=== PATIENT | female | born 1985 | race Two or more races ===

== ENCOUNTER 2024-05-08 05:14 | Emergency (ER) | payer MEDICAID, OTHER ==
[~2024-05-08] VITALS: Ht 167.6 cm; Wt 83.6 kg
--- NOTE | 2024-05-08 07:07 | ED.PDOC ---
Psychiatric HPI Comments 39 y/o F, presents to the ED for CC of mental health. Patient states, that she has been experiencing weakness and fatigue after being given proxy black magic. Patient relays, on additionally symptoms of skin discoloration and dry patches to the neck and head. Patient comments on, "latter day is being practiced on me". Patient denies suicidal ideation, homicidal ideation, visual hallucinations, or auditory hallucinations. No other symptoms or modifying factors at this time. Chief Complaint: Mental Health Time Seen by MD: 07:00 Reviewed Notes: Nurses Notes, Medications, Allergies Information Source: Patient Mode of Arrival: Ambulatory Severity: Able to Care for Self Severity of Pain: Mild Severity of Mental Status: Mild Severity of Symptoms: Mild Timing: Months Duration: Since onset Prehospital treatment: None Presents with: Unclear Thinking Ingestion: None Circumstance: None Current substance abuse: None Stressors: None History of: None Quality: None Location: None Location of pain or injury: None Associated signs and symptoms: None Past Medical History PAST MEDICAL HISTORY: Denies Surgical History: Denies all surgeries GENERAL SUPERVISOR History: Denies all GENERAL SUPERVISOR Hx Family History Family History: Unknown Social History Smoker: Non-Smoker Alcohol: Denies ETOH Use Drugs: Denies Drug Use Lives In: Home Constitutional: reports: fatigue, weakness; denies: chills, diaphoresis, fever, malaise, sweats, others EENTM: denies: blurred vision, double vision, ear bleeding, ear discharge, ear drainage, ear pain, ear ringing, eye pain, eye redness, hearing loss, mouth pain, mouth swelling, nasal discharge, nose bleeding, nose congestion, nose pain, photophobia, tearing, throat pain, throat swelling, voice changes, others Respiratory: denies: cough, hemoptysis, orthopnea, SOB at rest, shortness of breath, SOB with excertion, stridor, wheezing, others Cardiovascular: denies: chest pain, dizzy spells, diaphoresis, Dyspnea on exertion, edema, irregular heart beat, left arm pain, lightheadedness, palpitations, PND, syncope, others Gastrointestinal: denies: abdomen distended, abdominal pain, blood streaked bowels, constipated, diarrhea, dysphagia, difficulty swallowing, hematemesis, melena, nausea, poor appetite, poor fluid intake, rectal bleeding, rectal pain, vomiting, others Genitourinary: denies: abnormal vagina bleeding, burning, dyspareunia, dysuria, flank pain, frequency, hematuria, incontinence, pain, , vagina discharge, urgency, others Neurological: denies: dizziness, fainting, headache, left sided numbness, left sided weakness, numbness, paresthesia, pre-existing deficit, right sided numbness, right sided weakness, seizure, speech problems, tingling, tremors, weakness, others Musculoskeletal: denies: back pain, gout, joint pain, joint swelling, muscle pain, muscle stiffness, neck pain, others Integumetry: denies: bruises, change in color, change in hair/nails, dryness, laceration, lesions, lumps, rash, wounds, others Allergic/Immunocompromised: denies: Difficulty Healing, Frequent Infections, Hives, Itching, others Hematologic/Lymphatic: denies: anemia, blood clots, easy bleeding, easy bruising, swollen glands, others Endocrine: denies: excessive hunger, excessive sweating, excessive thirst, excessive urination, flushing, intolerance to cold, intolerance to heat, unexplained weight gain, unexplained weight loss, others All Other Systems: Reviewed and Negative Physical Exam General Appearance: Mild Distress HEENT: Normal ENT Inspection, Pharynx Normal, TMs Normal Neck: Full Range of Motion, Non-Tender, Normal, Normal Inspection Respiratory: Chest Non-Tender, Lungs Clear, No Accessory Muscle Use, No Respiratory Distress, Normal Breath Sounds Cardiovascular: No Edema, No JVD, No Murmur, No Gallop, Normal Peripheral Pulses, Regular Rate/Rhythm Breast Exam: Deferred Gastrointestinal: No Organomegaly, Non Tender, No Pulsatile Mass, Normal Bowel Sounds, Soft Genitalia: Deferred Pelvic: Deferred Rectal: Deferred Extremities: No calf tenderness, Normal capillary refill, Normal inspection, Normal range of motion, Non-tender, No pedal edema Musculoskeletal : Apperance: Normal Neurologic: Alert, 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 Was a procedure done?: No Psych Differential Dx Psych. Differential Dx: Anxiety, Schizoprenia, Sleepless OD Differential Dx: Alcohol Abuse, Depression, Hallucinations X-Ray, Labs, Meds, VS Vital Signs Date Time Temp Pulse Resp B/P (MAP) Pulse Ox O2 Delivery O2 Flow Rate FiO2 05/08/24 07:33 98.4 82 16 120/68 (85) 99 98.4 05/08/24 07:33 87 16 99 Room Air* 0 21 05/08/24 05:25 97.5 82 12 144/87 (106) 97 Patient alert. Complaining of generalized symptoms. Denies suicidal or homicidal ideation. Vitals stable. Answering all questions. Possible anxiety. Was given prescription of Ativan. Abdomen is soft nontender. No chest pain. No leg swelling. Ambulating without difficulty. Explained to the patient. Was told to follow up with her primary care physician. Was told to come back if there is any problem. Time of 1ST Reevaluation: 07:30 Reevaluation 1ST: Improved Patient Education/Counseling: Diagnosis, Treatment Family Education/Counseling: No Family Present Departure 1 Departure Time of Disposition: 08:12 Impression: Primary Impression: Anxiety Disposition: 01 HOME / SELF CARE / HOMELESS Condition: Good e-Prescriptions Lorazepam (ATIVAN TABLET) 0.5 Mg Tb 1 TAB PO DAILY for 5 Days, #5 TAB Prov: TRACI CLAY MD 05/08/24 Discharged With: Self Critical Care Note Critical Care Time?: No Stability Stability form required: No Heart Score Heart Score: Heart Score Response (Comments) Value History N/A 0 EKG N/A 0 Age N/A 0 Risk Factors N/A 0 Troponin N/A 0 Total 0 I personally scribed for TRACI CLAY MD ([email or web address]) on 05/08/24 at 07:07. Electronically submitted by Jemma Beck ([email or web address]). TRACI CLAY MD May 08, 2024 07:07
[2024-05-08 07:33] VITALS: BP 120/68; PULSE 87; RESP 16; TEMP 98.4; O2SAT 99
[2024-05-08] MEDS ORDERED: LORA-1121 PO (08:13)
[2024-05-08] MEDS ORDERED: LORazepam 0.5 MG TAB PO ONE (08:15)
== END 2024-05-08 09:34 | disposition home or self-care (01) ==
LOC: ER 05:14
DX: F41.9 Anxiety disorder, unspecified (principal)

== ENCOUNTER 2024-05-09 02:31 | Emergency (ER) | payer MEDICAID ==
[~2024-05-09] VITALS: Ht 167.6 cm; Wt 82.3 kg
[~2024-05-09 02:31] MED LIST: LORA-1121 PO
[2024-05-09 02:55] VITALS: BP 132/88; PULSE 89; RESP 17; O2SAT 100
== END 2024-05-09 05:04 | disposition left against medical advice (07) ==
LOC: ER 02:31
DX: F41.9 Anxiety disorder, unspecified (principal); Z53.21 Procedure and treatment not carried out due to patient leaving prior to being seen by health care provider

== ENCOUNTER 2024-05-16 22:41 | Emergency (ER) | payer MEDICAID ==
[~2024-05-16] VITALS: Ht 167.6 cm; Wt 81.7 kg
[2024-05-16 23:16] VITALS: BP 136/81; PULSE 105; RESP 18; O2SAT 100
--- NOTE | 2024-05-17 01:12 | ED.PDOC ---
History of Present Illness HPI Comments 39 year old female presents to the ED with multiple minor complaints, onset 2 months ago. Patient states she began noticing skin discoloration as well as pain behind ears, hair loss for the past few months. Patient states she believes she may have PTSD and is requesting a mental health referral. Patient denies any suicidal or homicidal ideation or auditory/visual hallucinations. Patient admits to meth use yesterday. Denies any PMHx. Chief Complaint: Mental Health Time Seen by MD: 00:43 Reviewed Notes: Medications, Allergies Allergies: Coded Allergies: Aspirin (Verified Allergy, Unknown, 05/08/24) Penicillins (Verified Allergy, Unknown, 05/08/24) Home Meds Active Scripts Lorazepam (ATIVAN TABLET) 0.5 Mg Tb, 1 TAB PO DAILY for 5 Days, #5 TAB Prov:TRACI CLAY MD 05/08/24 Information Source: Patient Mode of Arrival: Ambulatory Severity: Moderate Timing: Months Duration: Since onset Prehospital treatment: None Past Medical History PAST MEDICAL HISTORY: Denies Surgical History: Denies all surgeries STRUCTURAL ENGINEERING DRAFTING OFFICER History: Denies all STRUCTURAL ENGINEERING DRAFTING OFFICER Hx Family History Family History: Unknown Social History Smoker: Non-Smoker Alcohol: Denies ETOH Use Drugs: Methamphetamine Lives In: Home Constitutional: reports: others (hair loss); denies: chills, diaphoresis, fatigue, fever, malaise, sweats, weakness EENTM: reports: ear pain (behind ear); denies: blurred vision, double vision, ear bleeding, ear discharge, ear drainage, ear ringing, eye pain, eye redness, hearing loss, mouth pain, mouth swelling, nasal discharge, nose bleeding, nose congestion, nose pain, photophobia, tearing, throat pain, throat swelling, voice changes, others Respiratory: denies: cough, hemoptysis, orthopnea, SOB at rest, shortness of breath, SOB with excertion, stridor, wheezing, others Cardiovascular: denies: chest pain, dizzy spells, diaphoresis, Dyspnea on exertion, edema, irregular heart beat, left arm pain, lightheadedness, palpitations, PND, syncope, others Gastrointestinal: denies: abdomen distended, abdominal pain, blood streaked bowels, constipated, diarrhea, dysphagia, difficulty swallowing, hematemesis, melena, nausea, poor appetite, poor fluid intake, rectal bleeding, rectal pain, vomiting, others Genitourinary: denies: abnormal vagina bleeding, burning, dyspareunia, dysuria, flank pain, frequency, hematuria, incontinence, pain, , vagina discharge, urgency, others Neurological: denies: dizziness, fainting, headache, left sided numbness, left sided weakness, numbness, paresthesia, pre-existing deficit, right sided numbness, right sided weakness, seizure, speech problems, tingling, tremors, weakness, others Musculoskeletal: denies: back pain, gout, joint pain, joint swelling, muscle pain, muscle stiffness, neck pain, others Integumetry: reports: change in color (discoloration); denies: bruises, change in hair/nails, dryness, laceration, lesions, lumps, rash, wounds, others Allergic/Immunocompromised: denies: Difficulty Healing, Frequent Infections, Hives, Itching, others Hematologic/Lymphatic: denies: anemia, blood clots, easy bleeding, easy bruising, swollen glands, others Endocrine: denies: excessive hunger, excessive sweating, excessive thirst, excessive urination, flushing, intolerance to cold, intolerance to heat, unexplained weight gain, unexplained weight loss, others Psychiatric: denies: anxiety, bipolar disorder, depression, hopeless, panic disorder, schizophrenia, sleepless, suicidal, others All Other Systems: Reviewed and Negative Physical Exam General Appearance: No Apparent Distress HEENT: PERRL/EOMI, Other (minimal patchy alopecia. no scalp lesions noted.) Neck: Full Range of Motion, Non-Tender, Normal Inspection, Supple Respiratory: Lungs Clear, No Accessory Muscle Use, No Respiratory Distress, Normal Breath Sounds Cardiovascular: No Edema, No JVD, Regular Rate/Rhythm Breast Exam: Deferred Gastrointestinal: Non Tender, Soft Genitalia: Deferred Pelvic: Deferred Rectal: Deferred Extremities: Normal inspection, Normal range of motion, Non-tender, No pedal edema Neurologic: Alert (Oriented x4), Normal Affect, Normal Mood, Other (Ambulatory without difficulty. No gross focal deficit.) Cerebellar Function: NOT DONE Reflexes: NOT DONE Skin: Dry, Normal Color, Warm Lymphatic: NOT DONE Was a procedure done? Was a procedure done?: No Differential Dx Considerations may include: Meth abuse, psychosis, PTSD, depression, anxiety, among others X-Ray, Labs, Meds, VS Vital Signs Date Time Temp Pulse Resp B/P (MAP) Pulse Ox O2 Delivery O2 Flow Rate FiO2 05/16/24 23:16 97.8 105 18 136/81 (99) 100 X-Ray, Labs, Meds, VS Comment 39-year-old female with no significant past medical history presenting with multiple minor complaints including skin discoloration, pain behind her ears, and patchy hair loss. Patient denies suicidal or homicidal ideation, auditory or visual hallucinations. Vitals remarkable for heart rate 105 Exam remarkable for minimal patchy alopecia without scalp lesions Rhythm strip independently interpreted by me: Sinus tach, rate 105, no ectopy. CBC, metabolic panel, urine drug screen, urinalysis, hCG and alcohol levels were ordered to obtain medical clearance for psychiatric evaluation, however patient refused lab draw. I advised the patient that we would obtain tele psych evaluation if desired, however the patient declined this, stating that she would prefer to obtain referrals for outpatient mental health evaluation. She did request pain medicine for the pain behind her ears, so p.o. [place] was ordered. Patient is alert, oriented x4, not suicidal, homicidal or having auditory or hallucinations. She was offered social secretary consultation in the morning, however she declined. She appears capable of making informed decisions in capable of navigating the community independently. Time of 1ST Reevaluation: 01:13 Reevaluation 1ST: Unchanged Patient Education/Counseling: Diagnosis, Treatment, Prognosis Family Education/Counseling: No Family Present Departure 1 Departure Time of Disposition: 01:20 Impression: Primary Impression: Posterior auricular pain of both ears Additional Impression: Methamphetamine abuse Disposition: 01 HOME / SELF CARE / HOMELESS Condition: Stable Discharged With: Self Critical Care Note Critical Care Time?: No Stability Stability form required: No Heart Score Heart Score: Heart Score Response (Comments) Value History N/A 0 EKG N/A 0 Age N/A 0 Risk Factors N/A 0 Troponin N/A 0 Total 0 I personally scribed for JOAQUIN ROY MD ([email or web address]) on 05/17/24 at 01 :12. Electronically submitted by Marilyn Finley ([email or web address]). JOAQUIN ROY MD May 17, 2024 01:12
[2024-05-17] MEDS: HYDROcodone-ACET 5/325MG TAB PO ONE (01:26)
== END 2024-05-17 02:55 | disposition home or self-care (01) ==
LOC: ER 22:41
DX: H92.03 Otalgia, bilateral (principal); F15.10 Other stimulant abuse, uncomplicated; Z88.0 Allergy status to penicillin; Z88.6 Allergy status to analgesic agent

== ENCOUNTER 2024-05-28 03:42 | Emergency (ER) | payer MEDICAID ==
[~2024-05-28] VITALS: Ht 167.6 cm; Wt 75.4 kg
[2024-05-28 04:13] VITALS: BP 142/93; PULSE 100; RESP 18; O2SAT 100
--- NOTE | 2024-05-28 04:33 | ED.PDOC ---
History of Present Illness HPI Comments 39 y/o F presents for nausea, vomiting, and abnormal bleeding, tooisris. Patient is a poor historian and inquires on having her HgB levels checked due to recent onset of other aforementioned symptoms this past week. Denies any abdominal pain, diarrhea, urinary symptoms, fevers, or chills. Chief Complaint: Abnormal LAB's Time Seen by MD: 04:20 Reviewed Notes: Nurses Notes, Medications Allergies: Coded Allergies: Aspirin (Verified Allergy, Unknown, 05/08/24) Penicillins (Verified Allergy, Unknown, 05/08/24) Home Meds Active Scripts Lorazepam (ATIVAN TABLET) 0.5 Mg Tb, 1 TAB PO DAILY for 5 Days, #5 TAB Prov:TRACI CLAY MD 05/08/24 Information Source: Patient Mode of Arrival: Ambulatory Severity: Moderate Timing: Hours Duration: Since onset Prehospital treatment: None Past Medical History PAST MEDICAL HISTORY: Denies Surgical History: Denies all surgeries SHEET FOLDER History: Denies all SHEET FOLDER Hx Family History Family History: Unknown Social History Smoker: Non-Smoker Alcohol: Denies ETOH Use Drugs: Methamphetamine Lives In: Home All Other Systems: Reviewed and Negative (negative unless otherwise stated above or in HPI) Physical Exam General Appearance: No Apparent Distress, Normal HEENT: Normal ENT Inspection, Pharynx Normal, TMs Normal Neck: Full Range of Motion, Non-Tender, Normal, Normal Inspection Respiratory: Chest Non-Tender, Lungs Clear, No Accessory Muscle Use, No R espiratory Distress, Normal Breath Sounds Cardiovascular: No Edema, No JVD, No Murmur, No Gallop, Normal Peripheral Pulses, Regular Rate/Rhythm Breast Exam: Deferred Gastrointestinal: No Organomegaly, Non Tender, No Pulsatile Mass, Normal Bowel Sounds, Soft Genitalia: Deferred Pelvic: Deferred Rectal: Deferred Extremities: No calf tenderness, Normal capillary refill, Normal inspection, Normal range of motion, Non-tender, No pedal edema Musculoskeletal : Apperance: Normal Neurologic: Alert, 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 Was a procedure done?: No Differential Dx Considerations may include: anemia, dehydration, schizoaffective disorder X-Ray, Labs, Meds, VS Vital Signs Date Time Temp Pulse Resp B/P (MAP) Pulse Ox O2 Delivery O2 Flow Rate FiO2 05/28/24 04:13 98.2 100 18 142/93 (109) 100 Time of 1ST Reevaluation: 04:50 Reevaluation 1ST: Unchanged Time of 2ND Reevaluation: 05:15 Reevaluation 2ND: Improved Patient Education/Counseling: Diagnosis, Treatment Family Education/Counseling: No Family Present Departure 1 Departure Time of Disposition: 05:30 Impression: Primary Impression: Anxiety Disposition: 01 HOME / SELF CARE / HOMELESS Condition: Stable Discharged With: Self Critical Care Note Critical Care Time?: No Stability Stability form required: No Heart Score Heart Score: Heart Score Response (Comments) Value History N/A 0 EKG N/A 0 Age N/A 0 Risk Factors N/A 0 Troponin N/A 0 Total 0 I personally scribed for NIYAH BERMUDEZ MD ([email or web address]) on 05/28/24 at 04:33. Electronically submitted by Bobby Dillon ([email or web address]). NIYAH BERMUDEZ MD May 28, 2024 04:33
== END 2024-05-28 06:40 | disposition home or self-care (01) ==
LOC: ER 03:42
DX: F41.9 Anxiety disorder, unspecified (principal); R11.2 Nausea with vomiting, unspecified; Z79.899 Other long term (current) drug therapy; Z88.0 Allergy status to penicillin; Z79.82 Long term (current) use of aspirin

== ENCOUNTER 2024-06-02 05:17 | Emergency (ER) | payer MEDICAID | END 2024-06-02 05:27 | disposition left against medical advice (07) | LOC: ER 05:17 | DX: R53.83 Other fatigue (principal); R42 Dizziness and giddiness; Z53.21 Procedure and treatment not carried out due to patient leaving prior to being seen by health care provider ==

== ENCOUNTER 2024-06-19 06:55 | Emergency (ER) | payer MEDICAID ==
[~2024-06-19] VITALS: Ht 167.6 cm; Wt 80.0 kg
[2024-06-19 07:10] VITALS: BP 154/94; PULSE 96; RESP 16; TEMP 97.8; O2SAT 98
--- NOTE | 2024-06-19 07:11 | ED.PDOC ---
History of Present Illness HPI Comments 39 year old female JHON presents to the ED with chief complaint of generalized body pains. EMS reports patient was found to be in pain at [facility] when EMS was called. EMS relays that the patient is complaining of body pains, headaches, and skin discolorations that are because of a "witch doctor" practicing black magic on her. EMS states patient denies any drug use and is A/O x4. Patient requests spiritual healing. Patient denies any psych history, dizziness, N/V, chest pain, or SOB. Time Seen by MD: 07:08 Reviewed Notes: Nurses Notes, Student Services Representative Notes, Medications, Allergies Allergies: Coded Allergies: Aspirin (Verified Allergy, Unknown, 05/08/24) Penicillins (Verified Allergy, Unknown, 05/08/24) Home Meds Active Scripts Lorazepam (ATIVAN TABLET) 0.5 Mg Tb, 1 TAB PO DAILY for 5 Days, #5 TAB Prov:TRACI CLAY MD 05/08/24 Information Source: Patient, Emergency Med Personnel Mode of Arrival: EMS Severity: Mild Timing: Hours Duration: Since onset Prehospital treatment: None Past Medical History PAST MEDICAL HISTORY: Denies Surgical History: Denies all surgeries CANCER CENTER DIRECTOR History: Denies all CANCER CENTER DIRECTOR Hx Family History Family History: Unknown Social History Smoker: Non-Smoker Alcohol: Denies ETOH Use Drugs: Methamphetamine Lives In: Home Constitutional: reports: others (Body pains); denies: chills, diaphoresis, fatigue, fever, malaise, sweats, weakness EENTM: denies: blurred vision, double vision, ear bleeding, ear discharge, ear drainage, ear pain, ear ringing, eye pain, eye redness, hearing loss, mouth pain, mouth swelling, nasal discharge, nose bleeding, nose congestion, nose pa in, photophobia, tearing, throat pain, throat swelling, voice changes, others Respiratory: denies: cough, hemoptysis, orthopnea, SOB at rest, shortness of breath, SOB with excertion, stridor, wheezing, others Cardiovascular: denies: chest pain, dizzy spells, diaphoresis, Dyspnea on exertion, edema, irregular heart beat, left arm pain, lightheadedness, palpitations, PND, syncope, others Gastrointestinal: denies: abdomen distended, abdominal pain, blood streaked bowels, constipated, diarrhea, dysphagia, difficulty swallowing, hematemesis, melena, nausea, poor appetite, poor fluid intake, rectal bleeding, rectal pain, vomiting, others Genitourinary: denies: abnormal vagina bleeding, burning, dyspareunia, dysuria, flank pain, frequency, hematuria, incontinence, pain, , vagina discharge, urgency, others Neurological: reports: headache; denies: dizziness, fainting, left sided nu mbness, left sided weakness, numbness, paresthesia, pre-existing deficit, right sided numbness, right sided weakness, seizure, speech problems, tingling, tremors, weakness, others Musculoskeletal: denies: back pain, gout, joint pain, joint swelling, muscle pain, muscle stiffness, neck pain, others Integumetry: reports: others (Skin discoloration); denies: bruises, change in color, change in hair/nails, dryness, laceration, lesions, lumps, rash, wounds Allergic/Immunocompromised: denies: Difficulty Healing, Frequent Infections, Hives, Itching, others Hematologic/Lymphatic: denies: anemia, blood clots, easy bleeding, easy bruising, swollen glands, others Endocrine: denies: excessive hunger, excessive sweating, excessive thirst, excessive urination, flushing, intolerance to cold, intolerance to heat, unexplained weight gain, unexplained weight loss, others Psychiatric: denies: anxiety, bipolar disorder, depression, hopeless, panic disorder, schizophrenia, sleepless, suicidal, others All Other Systems: Reviewed and Negative Physical Exam General Appearance: Moderate Distress, Normal HEENT: Normal ENT Inspection, PERRL/EOMI Neck: Full Range of Motion, Non-Tender, Normal, Normal Inspection Respiratory: Chest Non-Tender, Lungs Clear, No Accessory Muscle Use, No Respiratory Distress, Normal Breath Sounds Cardiovascular: No Edema, No JVD, No Murmur, No Gallop, Normal Peripheral Pulses, Regular Rate/Rhythm Breast Exam: Deferred Gastrointestinal: No Organomegaly, Non Tender, No Pulsatile Mass, Normal Bowel Sounds, Soft Genitalia: Deferred Pelvic: Deferred Rectal: Deferred Extremities: No calf tenderness, Normal capillary refill, Normal inspection, Normal range of motion, Non-tender, No pedal edema Musculoskeletal : Apperance: Normal Neurologic: Alert, human resources designate II-XII nml as Tested, No Motor Deficits, Normal Affect, Normal Mood, No Sensory Deficits Cerebellar Function: Normal Reflexes: Normal Skin: Dry, Normal Color, Warm Peripheral Pulses: 3+ Radial (R), 3+ Radial (L) Lymphatic: No Adenopathy Was a procedure done? Was a procedure done?: No Differential Dx Considerations may include: Drug use X-Ray, Labs, Meds, VS Vital Signs Date Time Temp Pulse Resp B/P (MAP) Pulse Ox O2 Delivery O2 Flow Rate FiO2 06/19/24 07:10 97.8 96 16 154/94 (114) 98 97.8 Patient alert. Denies any symptoms. Vitals stable. Answering all questions. Insists on leaving. Counseled patient on effects of use of drugs pain Was told to take Benadryl. Left without telling anyone. Time of 1ST Reevaluation: 08:08 Reevaluation 1ST: Improved Patient Education/Counseling: Diagnosis, Treatment Family Education/Counseling: No Family Present Additional Information Previous visit documents reviewed: 06/02/24 for fatigue/dizziness The following tests were ordered, and results were reviewed by me: JOSÉ LUIS Additional Information was gathered from interviewing the following independent historians: EMS I reviewed and agreed with the following test results read by other providers: None I discussed treatment and results with medical personnel and: Patient Departure 1 Departure Time of Disposition: 18:28 Impression: Primary Impression: Methamphetamine abuse Additional Impression: Anxiety Disposition: 30 STILL A PATIENT Condition: Good Critical Care Note Critical Care Time?: No Stability Stability form required: No Heart Score Heart Score: Heart Score Response (Comments) Value History N/A 0 EKG N/A 0 Age N/A 0 Risk Factors N/A 0 Troponin N/A 0 Total 0 I personally scribed for TRACI CLAY MD ([email or web address]) on 06/19/24 at 07:11. Electronically submitted by Adryan Butts ([email or web address]). I personally scribed for TRACI CLYA MD ([email or web address]) on 06/19/24 at 07:30. Electronically submitted by Adryan Butts ([email or web address]). TRACI CLAY MD Jun 19, 2024 07:11
[2024-06-19] MEDS: diphenhdrAMINE HCL 25 MG CAP PO ONE (07:15)
== END 2024-06-19 08:54 | disposition left against medical advice (07) ==
LOC: ER 06:55 → EDBD 06:55 → ER 08:54
DX: F15.10 Other stimulant abuse, uncomplicated (principal); F41.9 Anxiety disorder, unspecified; Z79.899 Other long term (current) drug therapy; Z88.0 Allergy status to penicillin; Z88.6 Allergy status to analgesic agent

== ENCOUNTER 2024-06-21 22:25 | Emergency (ER) | payer MEDICAID ==
[~2024-06-21] VITALS: Ht 167.6 cm; Wt 81.6 kg
[2024-06-21 22:58] VITALS: BP 132/78; PULSE 101; RESP 16; TEMP 99; O2SAT 97
--- NOTE | 2024-06-21 23:33 | ED.PDOC ---
History of Present Illness HPI Comments This patient is a 39-year-old female who arrives to the ED today for evaluation of generalized weakness. Patient states she has a history of anemia and is concerned that she is anemic. Additionally, patient confirms illicit drug use including PCP as recently as today.. Patient was slightly tachycardic at [facility]. Chief Complaint: Abnormal LAB's Time Seen by MD: 22:36 Reviewed Notes: Nurses Notes Allergies: Coded Allergies: Aspirin (Verified Allergy, Unknown, 05/08/24) Penicillins (Verified Allergy, Unknown, 05/08/24) Home Meds Active Scripts Lorazepam (ATIVAN TABLET) 0.5 Mg Tb, 1 TAB PO DAILY for 5 Days, #5 TAB Prov:TRACI CLAY MD 05/08/24 Information Source: Patient Mode of Arrival: Ambulatory Severity: Mild Timing: Hours Duration: Since onset Prehospital treatment: None Past Medical History PAST MEDICAL HISTORY: Anemia, Denies Surgical History: Denies all surgeries APPRENTICE LINEMAN THIRD STEP History: Denies all 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 LINEMAN THIRD STEP Hx Family History Family History: Unknown Social History Smoker: Non-Smoker Alcohol: Denies ETOH Use Drugs: Methamphetamine Lives In: Home Constitutional: reports: fatigue, weakness; denies: chills, diaphoresis, fever, malaise, sweats, others EENTM: denies: blurred vision, double vision, ear bleeding, ear discharge, ear drainage, ear pain, ear ringing, eye pain, eye redness, hearing loss, mouth pain, mouth swelling, nasal discharge, nose bleeding, nose congestion, nose pain, photophobia, tearing, throat pain, throat swelling, voice changes, others Respiratory: denies: cough, hemoptysis, orthopnea, SOB at rest, shortness of breath, SOB with excertion, stridor, wheezing, others Cardiovascular: denies: chest pain, dizzy spells, diaphoresis, Dyspnea on exertion, edema, irregular heart beat, left arm pain, lightheadedness, palpitations, PND, syncope, others Gastrointestinal: denies: abdomen distended, abdominal pain, blood streaked bowels, constipated, diarrhea, dysphagia, difficulty swallowing, hematemesis, melena, nausea, poor appetite, poor fluid intake, rectal bleeding, rectal pain, vomiting, others Genitourinary: denies: abnormal vagina bleeding, burning, dyspareunia, dysuria, flank pain, frequency, hematuria, incontinence, pain, , vagina discharge, urgency, others Neurological: denies: dizziness, fainting, headache, left sided numbness, left sided weakness, numbness, paresthesia, pre-existing deficit, right sided numbness, right sided weakness, seizure, speech problems, tingling, tremors, weakness, others Musculoskeletal: denies: back pain, gout, joint pain, joint swelling, muscle pain, muscle stiffness, neck pain, others Integumetry: denies: bruises, change in color, change in hair/nails, dryness, laceration, lesions, lumps, rash, wounds, others Allergic/Immunocompromised: denies: Difficulty Healing, Frequent Infections, Hives, Itching, others Hematologic/Lymphatic: denies: anemia, blood clots, easy bleeding, easy bruising, swollen glands, others Endocrine: denies: excessive hunger, excessive sweating, excessive thirst, excessive urination, flushing, intolerance to cold, intolerance to heat, unexplained weight gain, unexplained weight loss, others Psychiatric: denies: anxiety, bipolar disorder, depression, hopeless, panic disorder, schizophrenia, sleepless, suicidal, others Physical Exam General Appearance: No Apparent Distress (Patient did not seem to be in distress at time of evaluation. Patient was aggressively eating potato chips and looked asymptomatic.), Normal HEENT: Normal ENT Inspection, Pharynx Normal, TMs Normal Neck: Full Range of Motion, Non-Tender, Normal, Normal Inspection Respiratory: Chest Non-Tender, Lungs Clear, No Accessory Muscle Use, No Respir atory Distress, Normal Breath Sounds Cardiovascular: No Edema, No JVD, No Murmur, No Gallop, Normal Peripheral Pulses, Regular Rate/Rhythm Breast Exam: Deferred Gastrointestinal: No Organomegaly, Non Tender, No Pulsatile Mass, Normal Bowel Sounds, Soft Genitalia: Deferred Pelvic: Deferred Rectal: Deferred Extremities: No calf tenderness, Normal capillary refill, Normal inspection, Normal range of motion, Non-tender, No pedal edema Neurologic: Alert, No Motor Deficits, No Sensory Deficits Cerebellar Function: NOT DONE Reflexes: NOT DONE Skin: Dry, Normal Color, Warm Lymphatic: No Adenopathy Was a procedure done? Was a procedure done?: No Differential Dx Considerations may include: Anemia, electrolyte abnormality, UTI, sepsis, illicit drug use X-Ray, Labs, Meds, VS Vital Signs Date Time Temp Pulse Resp B/P (MAP) Pulse Ox O2 Delivery O2 Flow Rate FiO2 06/21/24 22:58 99.0 101 16 132/78 (96) 97 99.0 X-Ray, Labs, Meds, VS Comment Phlebotomy attempted multiple times to ascertain blood for blood work, but patient refused to give blood today. Patient will be discharged and advised to follow up with the primary care provider.Advised patient to cease illicit drug use immediately and follow up with a support groups such as narcotics anonymous. Time of 1ST Reevaluation: 23:31 Reevaluation 1ST: Unchanged Consultation: PCP Patient Education/Counseling: Diagnosis, Treatment Family Education/Counseling: Diagnosis, Treatment Departure 1 Departure Time of Disposition: 23:32 Impression: Primary Impression: Weakness Disposition: 01 HOME / SELF CARE / HOMELESS Condition: Stable Additional Instructions: Advised patient follow up with the primary care provider for continued evaluation as needed. Discharged With: Self Critical Care Note Critical Care Time?: No Stability Stability form required: No Heart Score Heart Score: Heart Score Response (Comments) Value History N/A 0 EKG N/A 0 Age N/A 0 Risk Factors N/A 0 Troponin N/A 0 Total 0 CHANDLER MATTHEWS PAC Jun 21, 2024 23:33
== END 2024-06-22 00:33 | disposition home or self-care (01) ==
LOC: ER 22:25
DX: R53.1 Weakness (principal); F12.90 Cannabis use, unspecified, uncomplicated; Z88.0 Allergy status to penicillin; Z79.899 Other long term (current) drug therapy; Z88.6 Allergy status to analgesic agent

== ENCOUNTER 2024-07-03 02:48 | Emergency (ER) | payer MEDICAID ==
[~2024-07-03] VITALS: Ht 167.6 cm; Wt 87.9 kg
[2024-07-03 03:00] VITALS: BP 130/79; PULSE 105; RESP 14; TEMP 98.5; O2SAT 99
--- NOTE | 2024-07-03 03:10 | ED.PDOC ---
SOB-HPI HPI Comments PT PRESENTS TO ED W/CC OF FATIGUE AND SOB. PT A&OX4, VSS, RR EVEN AND UNLABORED SATTING 99% ON RA. PATIENT REPORTS CHRONIC HISTORY OF ANEMIA SHE NOTES ADMISSIONS IN THE PAST FOR BLOOD TRANSFUSIONS. SHE DENIES DIFFICULTY BREATHING, CHEST PAIN, DIZZINESS, NAUSEA VOMITING. Chief Complaint: Shortness of Breath Time Seen by MD: 02:55 Reviewed notes: Nurses Notes, Medications, Allergies Information Source: Patient Past Medical History PAST MEDICAL HISTORY: Anemia, Denies Surgical History: Denies all surgeries SHALLOT PACKER History: Denies all SHALLOT PACKER Hx Family History Family History: Unknown Social History Smoker: Non-Smoker Alcohol: Denies ETOH Use Drugs: Methamphetamine Lives In: Home Constitutional: denies: chills, diaphoresis, fatigue, fever, malaise, sweats, weakness, others EENTM: denies: blurred vision, double vision, ear bleeding, ear discharge, ear drainage, ear pain, ear ringing, eye pain, eye redness, hearing loss, mouth pain, mouth swelling, nasal discharge, nose bleeding, nose congestion, nose pain, photophobia, tearing, throat pain, throat swelling, voice changes, others Respiratory: reports: cough, shortness of breath; denies: hemoptysis, orthopnea, SOB at rest, SOB with excertion, stridor, wheezing, others Cardiovascular: denies: chest pain, dizzy spells, diaphoresis, Dyspnea on exertion, edema, irregular heart beat, left arm pain, lightheadedness, palpitations, PND, syncope, others Gastrointestinal: denies: abdomen distended, abdominal pain, blood streaked bowels, constipated, diarrhea, dysphagia, difficulty swallowing, hematemesis, melena, nausea, poor appetite, poor fluid intake, rectal bleeding, rectal pain, vomiting, others Genitourinary: denies: abnormal vagina bleeding, burning, dyspareunia, dysuria, flank pain, frequency, hematuria, incontinence, pain, , vagina discharge, urgency, others Neurological: denies: dizziness, fainting, headache, left sided numbness, left sided weakness, numbness, paresthesia, pre-existing deficit, right sided numbness, right sided weakness, seizure, speech problems, tingling, tremors, weakness, others Musculoskeletal: denies: back pain, gout, joint pain, joint swelling, muscle pain, muscle stiffness, neck pain, others Integumetry: denies: bruises, change in color, change in hair/nails, dryness, laceration, lesions, lumps, rash, wounds, others Allergic/Immunocompromised: denies: Difficulty Healing, Frequent Infections, Hives, Itching, others Hematologic/Lymphatic: denies: anemia, blood clots, easy bleeding, easy bruising, swollen glands, others Endocrine: denies: excessive hunger, excessive sweating, excessive thirst, excessive urination, flushing, intolerance to cold, intolerance to heat, unexplained weight gain, unexplained weight loss, others Psychiatric: denies: anxiety, bipolar disorder, depression, hopeless, panic disorder, schizophrenia, sleepless, suicidal, others Physical Exam General Appearance: No Apparent Distress, Normal HEENT: Normal ENT Inspection, Pharynx Normal, TMs Normal Neck: Full Range of Motion, Non-Tender Respiratory: Chest Non-Tender, Lungs Clear, No Accessory Muscle Use, No Respiratory Distress, Normal Breath Sounds Cardiovascular: No Edema, No JVD, No Murmur, No Gallop, Normal Peripheral Pulses, Regular Rate/Rhythm Breast Exam: Deferred Gastrointestinal: No Organomegaly, Non Tender, No Pulsatile Mass, Normal Bowel Sounds, Soft Genitalia: Deferred Pelvic: Deferred Rectal: Deferred Extremities: Normal capillary refill, Normal inspection, Normal range of motion, Non-tender, No pedal edema Musculoskeletal : Apperance: Normal Neurologic: Alert, chrome cleaner II-XII nml as 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 Was a procedure done?: No Differential Dx Differential Diagnosis: Asthma, Bronchitis, Pneumonia X-Ray, Labs, Meds, VS Vital Signs Date Time Temp Pulse Resp B/P (MAP) Pulse Ox O2 Delivery O2 Flow Rate FiO2 07/03/24 03:00 98.5 105 14 130/79 (96) 99 98.5 Lab Test 07/03/24 03:12 Range/Units White Blood Count 6.0 4.4-10.8 10^3/uL Red Blood Count 4.05 4.0-5.20 10^6/uL Hemoglobin 8.4 L 12.2-16.2 g/dL Hematocrit 27.5 L 36.0-46.0 % Mean Corpuscular Volume 67.9 L 80.0-100.0 fL Mean Corpuscular Hemoglobin 20.8 L 28.0-32.0 pg Mean Corpuscular Hemoglobin Concent 30.6 L 32.0-36.0 g/dL Red Cell Distribution Width 18.5 H 11.8-14.3 % Platelet Count 478 H 140-450 10^3/uL Mean Platelet Volume 7.0 6.9-10.8 fL Neutrophils (%) (Auto) 44.6 37.0-80.0 % Lymphocytes (%) (Auto) 37.2 10.0-50.0 % Monocytes (%) (Auto) 12.4 H 0.0-12.0 % Eosinophils (%) (Auto) 3.6 0.0-7.0 % Basophils (%) (Auto) 2.2 H 0.0-2.0 % Neutrophils # (Auto) 2.7 1.6-8.6 10 ^3/uL Lymphocytes # (Auto) 2.2 0.4-5.4 10 ^3/uL Monocytes # (Auto) 0.7 0-1.3 10 ^3/uL Eosinophils # (Auto) 0.2 0-0.8 10 ^3/uL Basophils # (Auto) 0.1 0-0.2 10 ^3/uL Nucleated Red Blood Cells 0.3 % Sodium Level 139 136-145 mmol/L Potassium Level 4.3 3.5-5.1 mmol/L Chloride Level 109 H 98-107 mmol/L Carbon Dioxide Level 22 20-31 mmol/L Anion Gap 8 5-15 Blood Urea Nitrogen 15 9-23 mg/dL Creatinine 0.76 0.550-1.02 mg/dL Glomerular Filtration Rate Calc 103 >90 mL/min BUN/Creatinine Ratio 19.7 10.0-20.0 Serum Glucose 102 74-106 mg/dL Calcium Level 9.2 8.7-10.4 mg/dL Magnesium Level 1.9 1.6-2.6 mg/dL Iron Level 23 L 50-170 ug/dL Total Iron Binding Capacity 364 250-425 ug/dL Percent Iron Saturation 6.3 L 15-50 % Total Bilirubin 0.3 0.2-1.0 mg/dL Aspartate Amino Transferase (AST) 36 13-40 U/L Alanine Aminotransferase (ALT) 40 7-40 U/L Alkaline Phosphatase 53 46-116 U/L Total Protein 7.0 5.7-8.2 g/dL Albumin 4.1 3.2-4.8 g/dL X-Ray, Labs, Meds, VS Comment IMAGING: CHEST X-RAY SHOWS MILD PULMONARY CONGESTION LABS: HEMOGLOBIN 8.4 HEMATOCRIT 27.5 PATIENT REPORTS SHORTNESS OF BREATH AND FATIGUE. HISTORY OF CHRONIC ANEMIA. PATIENT'S HEMOGLOBIN 8.4 AND HEMATOCRIT 27.5 NO HISTORY OF BASELINE H&H. WE WILL PLACE FOR HOSPITALIST FOR ADMISSION FOR SYMPTOMATIC ANEMIA, SHORTNESS OF BREATH, AND FATIGUE. Time of 1ST Reevaluation: 03:09 Reevaluation 1ST: Unchanged Patient Education/Counseling: Diagnosis, Treatment, Prognosis, Need For Follow Up Family Education/Counseling: No Family Present Departure 1 Departure Time of Disposition: 03:23 Impression: Primary Impression: Symptomatic anemia Additional Impressions: Fatigue Qualified Codes: R53.83 - Other fatigue Shortness of breath Disposition: 09 ADMITTED INPATIENT Condition: Stable Discharged With: Self Critical Care Note Critical Care Time?: No Stability Stability form required: No Heart Score Heart Score: Heart Score Response (Comments) Value History N/A 0 EKG N/A 0 Age <45 0 Risk Factors N/A 0 Troponin N/A 0 Total 0 GRECIA MEDINA Jul 03, 2024 03:10
[2024-07-03 03:30] LABS: Basophils # (auto) 0.1 10 ^3/uL (0-0.2); Monocytes # (auto) 0.7 10 ^3/uL (0-1.3)
[2024-07-03 03:32] LABS: Basophils % (auto) 2.2 % (0.0-2.0); Eosinophils # (auto) 0.2 10 ^3/uL (0-0.8); Eosinophils % (auto) 3.6 % (0.0-7.0); Hematocrit 27.5 % (36.0-46.0); Hemoglobin 8.4 g/dL (12.2-16.2); Lymphocytes # (auto) 2.2 10 ^3/uL (0.4-5.4); Lymphocytes % (auto) 37.2 % (10.0-50.0); Mean Corpuscular Hemoglobin 20.8 pg (28.0-32.0); Mean Corpuscular Hgb Conc. 30.6 g/dL (32.0-36.0); Mean Corpuscular Volume 67.9 fL (80.0-100.0); Monocytes % (auto) 12.4 % (0.0-12.0); Neutrophils # (auto) 2.7 10 ^3/uL (1.6-8.6); Neutrophils % (auto) 44.6 % (37.0-80.0); Nucleated Red Blood Cells % 0.3 %; Platelet Count (auto) 478 10^3/uL (140-450); Red Blood Cells 4.05 10^6/uL (4.0-5.20); Red Cell Distribution Width 18.5 % (11.8-14.3)
[2024-07-03 03:37] LABS: Alanine Aminotransferase 40 U/L (7-40); Albumin 4.1 g/dL (3.2-4.8); Alkaline Phosphatase 53 U/L (46-116); Anion Gap 8 (5-15); Aspartate Aminotransferase 36 U/L (13-40); BUN/Creatinine Ratio 19.7 (10.0-20.0); Bilirubin, Total 0.3 mg/dL (0.2-1.0); Blood Urea Nitrogen 15 mg/dL (9-23); Calcium 9.2 mg/dL (8.7-10.4); Carbon Dioxide 22 mmol/L (20-31); Glucose 102 mg/dL (74-106); Magnesium 1.9 mg/dL (1.6-2.6); Potassium 4.3 mmol/L (3.5-5.1); Sodium 139 mmol/L (136-145)
[2024-07-03 03:43] LABS: Chloride 109 mmol/L (98-107)
--- NOTE | 2024-07-03 04:08 | DVH ---
CHEST RADIOGRAPH single view. Indication: SOB Technique: Single frontal view of the chest was obtained Comparison: None FINDINGS: Lines and Tubes: None Lungs: Mild bilateral interstitial prominence. No focal airspace disease. Pleura: No effusion. No pneumothorax. Cardiomediastinal contours: Magnified by portable technique. Bones: No acute osseous abnormality. IMPRESSION: 1. Mild pulmonary congestion.
[2024-07-03 05:02] LABS: % Iron Saturation 6.3 % (15-50)
== END 2024-07-03 07:30 | disposition left against medical advice (07) ==
LOC: ER 02:50
DX: D64.9 Anemia, unspecified (principal); R53.83 Other fatigue; R06.02 Shortness of breath
CPT/HCPCS: 36415; 71045; 80053; 83540; 83550; 83735; 85025

== ENCOUNTER 2024-07-05 03:15 | Emergency (ER) | payer MEDICAID | END 2024-07-05 03:26 | disposition left against medical advice (07) | LOC: ER 03:15 | DX: R06.02 Shortness of breath (principal); Z53.21 Procedure and treatment not carried out due to patient leaving prior to being seen by health care provider ==

== ENCOUNTER 2024-07-07 04:34 | Emergency (ER) | payer MEDICAID ==
[~2024-07-07] VITALS: Ht 167.6 cm; Wt 82.9 kg
--- NOTE | 2024-07-07 04:50 | ED.PDOC ---
Back pain HPI HPI Comments A 39 YEAR OLD FEMALE PRESENTS TO THE ED WITH COMPLAINT OF RIGHT SHOULDER PAIN S/P MECHANICAL FALL INJURY, TODAY. PATIENT STATES SHE WAS RUNNING AND THEN TRIPPED. SHE REPORTS ON CATCHING HERSELF WITH HER HANDS BUT HITTING HER RIGHT SHOULDER ONTO THE GROUND. DENIES LOC. PATIENT DENIES FEVER, CHILLS, SHORTNESS OF BREATH, CHEST PAIN, ABDOMINAL PAIN, NAUSEA, VOMITING, HEADACHE, OR OTHER COMPLAINTS. NO OTHER SYMPTOMS OR MODIFYING FACTORS AT THIS TIME. Chief Complaint: RIGHT SHOULDER PAIN Time Seen by MD: 04:39 Reviewed Notes: Nurses Notes, Medications, Allergies Allergies: Coded Allergies: Aspirin (Verified Allergy, Unknown, 05/08/24) Penicillins (Verified Allergy, Unknown, 05/08/24) Home Meds Active Scripts Ibuprofen (Ibuprofen) 800 Mg Tab, 1 TAB PO TID, #30 TAB Prov:STAN MILLER 07/07/24 Lorazepam (ATIVAN TABLET) 0.5 Mg Tb, 1 TAB PO DAILY for 5 Days, #5 TAB Prov:TRACI CLAY MD 05/08/24 Information Source: Patient Mode of Arrival: Ambulatory Timing: Days Duration: Since onset, Days Severity: Moderate Prehospital treatment: None Quality: Sharp History of: None Modifying Factors: Movement Associated signs and symptoms: None Past Medical History PAST MEDICAL HISTORY: Anemia Surgical History: Denies all surgeries FLOORPERSON History: Denies all FLOORPERSON Hx Family History Family History: Unknown Social History Smoker: Cigarettes Alcohol: Denies ETOH Use Drugs: Methamphetamine Lives In: Home Constitutional: denies: chills, diaphoresis, fatigue, fever, malaise, sweats, weakness, others EENTM: denies: blurred vision, double vision, ear bleeding, ear discharge, ear drainage, ear pain, ear ringing, eye pain, eye redness, hearing loss, mouth pain, mouth swelling, nasal discharge, nose bleeding, nose congestion, nose pain, photophobia, tearing, throat pain, throat swelling, voice changes, others Respiratory: denies: cough, hemoptysis, orthopnea, SOB at rest, shortness of breath, SOB with excertion, stridor, wheezing, others Cardiovascular: denies: chest pain, dizzy spells, diaphoresis, Dyspnea on exertion, edema, irregular heart beat, left arm pain, lightheadedness, palpitations, PND, syncope, others Gastrointestinal: denies: abdomen distended, abdominal pain, blood streaked bowels, constipated, diarrhea, dysphagia, difficulty swallowing, hematemesis, melena, nausea, poor appetite, poor fluid intake, rectal bleeding, rectal pain, vomiting, others Genitourinary: denies: abnormal vagina bleeding, burning, dyspareunia, dysuria, flank pain, frequency, hematuria, incontinence, pain, , vagina discharge, urgency, others Neurological: denies: dizziness, fainting, headache, left sided numbness, left sided weakness, numbness, paresthesia, pre-existing deficit, right sided numbness, right sided weakness, seizure, speech problems, tingling, tremors, weakness, others Musculoskeletal: reports: joint pain, muscle pain (RIGHT SHOULDER ), others (Right shoulder pain); denies: back pain, gout, joint swelling, muscle stiffness, neck pain Integumetry: denies: bruises, change in color, change in hair/nails, dryness, laceration, lesions, lumps, rash, wounds, others Allergic/Immunocompromised: denies: Difficulty Healing, Frequent Infections, Hives, Itching, others Hematologic/Lymphatic: denies: anemia, blood clots, easy bleeding, easy bruising, swollen glands, others Endocrine: denies: excessive hunger, excessive sweating, excessive thirst, excessive urination, flushing, intolerance to cold, intolerance to heat, unexplained weight gain, unexplained weight loss, others Psychiatric: denies: anxiety, bipolar disorder, depression, hopeless, panic disorder, schizophrenia, sleepless, suicidal, others All Other Systems: Reviewed and Negative Physical Exam General Appearance: No Apparent Distress, Normal HEENT: PERRL/EOMI, Pharynx Normal Neck: Full Range of Motion, Non-Tender Respiratory: Lungs Clear, No Respiratory Distress, Normal Breath Sounds Cardiovascular: No Murmur, Normal Peripheral Pulses, Regular Rate/Rhythm Breast Exam: Deferred Gastrointestinal: Non Tender, Soft Genitalia: Deferred Pelvic: Deferred Rectal: Deferred Extremities: Decreased range of motion, Normal capillary refill, Normal range of motion, No pedal edema, Swelling (TENDERNESS AND MILD SWELLING ON RIGHT SHOULDER, NO BONY TENDERNESS AND DEFORMITY. ), Tender (RIGHT SHOULDER, NO BONY TENDERNESS, SWELLING AND DEFORMITY. ) Musculoskeletal : Location: Right Extremity Location: Shoulder ( moderate tenderness palpated over anterior shoulder girdle strength sensory motion intact no noted abrasions lacerations ecchymosis or swelling. Radial pul) Apperance: Normal Neurologic: Alert, director of enrollment II-XII nml as Tested, No Motor Deficits, Normal Affect, Normal Mood, No Sensory Deficits Cerebellar Function: Normal Reflexes: Normal Skin: Dry, Normal Color, Warm Peripheral Pulses: 2+ carotid (R), 2+ carotid (L) Lymphatic: No Adenopathy Was a procedure done? Was a procedure done?: No Back Pain Differential Dx Differential Diagnosis: Fracture, Musculoskeletal Pain, Strain X-Ray, Labs, Meds, VS Vital Signs Date Time Temp Pulse Resp B/P (MAP) Pulse Ox O2 Delivery O2 Flow Rate FiO2 07/07/24 05:24 97 16 07/07/24 05:24 97.5 97 16 128/84 (99) 99 97.5 07/07/24 05:23 95 16 99 Room Air* 0 21 07/07/24 05:19 97.9 95 16 132/84 (100) 99 97.9 07/07/24 04:58 97.5 97 16 128/84 (99) 99 97.5 Lab Test 07/07/24 05:57 Range/Units Urine Color Yellow Yellow Urine Clarity Clear Clear Urine pH 5.5 5.0-9.0 Urine Specific [place] 1.038 H 1.001-1.035 Urine Protein 1+ H Negative Urine Ketones Negative Negative Urine Blood Negative Negative /uL Urine Nitrite Negative Negative Urine Bilirubin Negative Negative Urine Urobilinogen 2 H Negative mg/dL Urine Leukocyte Esterase Negative Negative /uL Urine RBC 5 0 - 4 /hpf Urine Microscopic WBC 2 0-5 /HPF Urine Squamous Epithelial Cells None seen <5 /hpf Urine Bacteria None seen None Seen /hpf Urine Mucus Few None Seen Urine Glucose Normal Normal mg/dL Urine Test Negative Negative Current Medications Medications (Trade) Dose Ordered Sig/[place] Route Start Time Stop Time Status Last Admin Acetaminophen/ Hydrocodone Bitart ([place] 5/325MG Tab) 1 tab ONCE ONCE PO 07/07/24 05:30 07/07/24 05:31 DC 07/07/24 07:[address] [address] Ph: [phone] DIAGNOSTIC IMAGING Diagnostic Imaging Report : [id number] Signed PATIENT: KAMERON GARVINMELI Efren ACCT: [id number] UNIT: [id number] : 1985 LOC: ER ROOM / BED: / AGE / SEX: 39 / F ADM STATUS: REG ER SERVICE 0 ORDERING PHYSICIAN: GRECIA MEDINA PROCEDURE(s): RSHD2 - R SHOULDER 2+ VIEW XRAY REASON: fall/pain ORDER NUMBER(s): [id number], ACCESSION NUMBER(s): [id number] EXAM: XR Right Shoulder Complete, 2 or More Views CLINICAL INDICATION: fall/pain TECHNIQUE: Two or more views of the right shoulder. COMPARISON: None FINDINGS: BONES/JOINTS: See below. SOFT TISSUES: Soft tissue swelling without acute fracture. OTHER FINDINGS: . IMPRESSION: 1. Soft tissue swelling without acute fracture. 2. If symptoms persist, further evaluation with CT is recommended. ATED BY: CHANDLER VERAS MD DICTATED DATE/TIME: 07/07/24733 SIGNED BY: CHANDLER VERAS MD SIGNED DATE/TIME: 07/07/24733 CC: X-Ray, Labs, Meds, VS Comment COURSE: EXTERNAL MEDICAL RECORDS REVIEWED: [NONE] INDEPENDENT HISTORIANS: [NONE] SOCIAL DETERMINANTS OF HEALTH: [NONE] LABS ORDERED: NONE REVIEWED AND INTERPRETED RESULTS: NEGATIVE IMAGING ORDERED: R SHOULDER XRAY TREATMENTS ORDERED: PAIN MEDS, NORCO AND MOTRIN PROCEDURES PERFORMED: NONE CRITICAL CARE TIME: NONE I HAVE DISCUSSED THE PATIENT WITH THE ATTENDING PHYSICIAN DR. CLAY AND HE AGREES WITH THE PATIENT'S PLAN OF CARE AND DISPOSITION. BASED ON HISTORY OF PRESENT ILLNESS, AND PHYSICAL EXAM, PATIENT WILL BE DISCHARGED HOME. DISCUSSED PLAN FOR DISCHARGE HOME WITH RX IBUPROFEN/MOTRIN MEDICATION WARNINGS GIVEN. SHARED DECISION MAKING: DISCUSSED WITH PATIENT THAT THEIR WORKUP WAS NORMAL. PATIENT INSTRUCTED TO FOLLOW UP WITH PRIMARY CARE PROVIDER IN 1-2 DAYS FOR RE- EVALUATION OF SYMPTOMS. PATIENT VERBALIZES UNDERSTANDING TO RETURN TO ED FOR NEW OR WORSENING SYMPTOMS OR IF FOLLOW UP WITH PCP CANNOT BE OBTAINED. PATIENT FEELS COMFORTABLE GOING HOME AT THIS TIME. ALL QUESTIONS ADDRESSED AT TIME OF DISCHARGE. Time of 1ST Reevaluation: 07:56 Reevaluation 1ST: Improved Patient Education/Counseling: Diagnosis, Treatment, Prognosis, Need For Follow Up Family Education/Counseling: Diagnosis, Treatment, No Family Present Medical Screening: No EMC Exist At This Time Departure 1 Departure Time of Disposition: 08:00 Impression: Primary Impression: Strain of unspecified muscle, fascia and tendon at shoulder and upper arm level, right arm, initial encounter Disposition: HOME / SELF CARE / HOMELESS Condition: Stable Additional Instructions: FOLLOW-UP WITH PCP IN 1 TO 2 DAYS. TAKE MEDICATIONS PRESCRIBED. RETURN TO ED FOR ANY NEW OR WORSENING SYMPTOMS. e-Prescriptions Ibuprofen (Ibuprofen) 800 Mg Tab 1 TAB PO TID, #30 TAB Prov: STAN MILLER 07/07/24 Discharged With: Self Critical Care Note Critical Care Time?: No Stability Stability form required: No Heart Score Heart Score: Heart Score Response (Comments) Value History N/A 0 EKG N/A 0 Age N/A 0 Risk Factors N/A 0 Troponin N/A 0 Total 0 I personally scribed for STAN MILLER ([email or web address]) on 07/07/24 at 07:43. Electronically submitted by Bobby Dillon ([email or web address]). I personally scribed for STAN MILLER ([email or web address]) on 07/07/24 at 07:45. Electronically submitted by Bobby Dillon ([email or web address]). I personally scribed for STAN MILLER ([email or web address]) on 07/07/24 at 07:51. Electronically submitted by Bobby Dillon ([email or web address]). I personally scribed for STAN MILLER ([email or web address]) on 07/07/24 at 07:54. Electronically submitted by Bobby Dillon ([email or web address]). GRECIA MEDINA Jul 07, 2024 04:50 STAN MILLER Jul 07, 2024 07:23
[2024-07-07] MEDS: IBUPROFEN 600 MG TAB PO ONE (05:21)
[2024-07-07 05:23] VITALS: PULSE 95; RESP 16; O2SAT 99
[2024-07-07 05:24] VITALS: BP 128/84; PULSE 97; RESP 16; TEMP 97.5; O2SAT 99
[2024-07-07] MEDS: HYDROcodone-ACET 5/325MG TAB PO ONE (05:27)
[2024-07-07 06:02] LABS: Urine Bacteria None Seen /hpf (None Seen)
[2024-07-07 06:29] LABS: Urine Blood Negative /uL (Negative); Urine Clarity Clear (Clear); Urine Color Yellow (Yellow); Urine Mucus FEW (None Seen); Urine Protein, UAD 1+ (Negative); Urine Specific Gravity 1.038 (1.001-1.035); Urine Squamous Epithelial Cell None Seen /hpf (<5); Urine Urobilinogen 2 mg/dL (Negative); Urine WBC 2 /HPF (0-5); Urine pH 5.5 (5.0-9.0)
--- NOTE | 2024-07-07 07:37 | DVH ---
EXAM: XR Right Shoulder Complete, 2 or More Views CLINICAL INDICATION: fall/pain TECHNIQUE: Two or more views of the right shoulder. COMPARISON: None FINDINGS: BONES/JOINTS: See below. SOFT TISSUES: Soft tissue swelling without acute fracture. OTHER FINDINGS: . IMPRESSION: 1. Soft tissue swelling without acute fracture. 2. If symptoms persist, further evaluation with CT is recommended.
[2024-07-07] MEDS ORDERED: IBUP-1456 PO (07:50)
== END 2024-07-07 07:58 | disposition home or self-care (01) ==
LOC: ER 04:34
DX: S46.811A Strain of other muscles, fascia and tendons at shoulder and upper arm level, right arm, initial encounter (principal); F17.210 Nicotine dependence, cigarettes, uncomplicated; D64.9 Anemia, unspecified; Z79.899 Other long term (current) drug therapy; Z88.0 Allergy status to penicillin; Z88.6 Allergy status to analgesic agent; W01.0XXA Fall on same level from slipping, tripping and stumbling without subsequent striking against object, initial encounter; Y93.89 Activity, other specified; Y92.89 Other specified places as the place of occurrence of the external cause; Y99.8 Other external cause status
CPT/HCPCS: 29105; 73030; 81001; 81025

== ENCOUNTER 2024-07-13 06:50 | Emergency (ER) | payer MEDICAID ==
[~2024-07-13] VITALS: Ht 167.6 cm; Wt 70.0 kg
[~2024-07-13 06:50] MED LIST changes: +IBUP-1456 PO
--- NOTE | 2024-07-13 07:41 | ED.PDOC ---
History of Present Illness HPI Comments 39F presents to the ER w/ prior Hx of anemia which may be associated to the c/c of ABN Labs. Pt reports that she has low Hemoglobin and wants to recheck it for medication. PM Hx of a blood transfusion. Social Hx of Tobacco and methamphetamine use, but denies alcohol use. Denies chills, fever, N/V/D, SOB, CP or no other associated symptoms, modifiers, recent injuries or sick contacts at this time. Chief Complaint: Abnormal LAB's Time Seen by MD: 07:35 Primary Care Provider: NONE Reviewed Notes: Nurses Notes, Medications, Allergies Allergies: Coded Allergies: Aspirin (Verified Allergy, Unknown, 05/08/24) Penicillins (Verified Allergy, Unknown, 05/08/24) Home Meds Active Scripts Ibuprofen (Ibuprofen) 800 Mg Tab, 1 TAB PO TID, #30 TAB Prov:STAN MILLER 07/07/24 Lorazepam (ATIVAN TABLET) 0.5 Mg Tb, 1 TAB PO DAILY for 5 Days, #5 TAB Prov:TRACI CLAY MD 05/08/24 Information Source: Patient Mode of Arrival: Ambulatory Severity: Moderate Timing: Came on: Gradually Duration: Intermittent Prehospital treatment: None Past Medical History PAST MEDICAL HISTORY: Anemia Past Medical History (Other): Blood Transfusion Surgical History: Denies all surgeries STRIPPER AND TAPER History: Denies all STRIPPER AND TAPER Hx Family History Family History: Reviewed,noncontributory to illness, Unknown Social History Smoker: Cigarettes Alcohol: Denies ETOH Use Drugs: Methamphetamine Lives In: Home Constitutional: reports: others (LABS); denies: chills, diaphoresis, fatigue, fever, malaise, sweats, weakness EENTM: denies: blurred vision, double vision, ear bleeding, ear discharge, ear drainage, ear pain, ear ringing, eye pain, eye redness, hearing loss, mouth pain, mouth swelling, nasal discharge, nose bleeding, nose congestion, nose pain, photophobia, tearing, throat pain, throat swelling, voice changes, others Respiratory: denies: cough, hemoptysis, orthopnea, SOB at rest, shortness of breath, SOB with excertion, stridor, wheezing, others Cardiovascular: denies: chest pain, dizzy spells, diaphoresis, Dyspnea on exertion, edema, irregular heart beat, left arm pain, lightheadedness, palpitations, PND, syncope, others Gastrointestinal: denies: abdomen distended, abdominal pain, blood streaked bowels, constipated, diarrhea, dysphagia, difficulty swallowing, hematemesis, melena, nausea, poor appetite, poor fluid intake, rectal bleeding, rectal pain, vomiting, others Genitourinary: denies: abnormal vagina bleeding, burning, dyspareunia, dysuria, flank pain, frequency, hematuria, incontinence, pain, , vagina discharge, urgency, others Neurological: denies: dizziness, fainting, headache, left sided numbness, left sided weakness, numbness, paresthesia, pre-existing deficit, right sided numbness, right sided weakness, seizure, speech problems, tingling, tremors, weakness, others Musculoskeletal: denies: back pain, gout, joint pain, joint swelling, muscle pain, muscle stiffness, neck pain, others Integumetry: denies: bruises, change in color, change in hair/nails, dryness, laceration, lesions, lumps, rash, wounds, others Allergic/Immunocompromised: denies: Difficulty Healing, Frequent Infections, Hives, Itching, others Hematologic/Lymphatic: denies: anemia, blood clots, easy bleeding, easy bruising, swollen glands, others Endocrine: denies: excessive hunger, excessive sweating, excessive thirst, excessive urination, flushing, intolerance to cold, intolerance to heat, unexplained weight gain, unexplained weight loss, others Psychiatric: denies: anxiety, bipolar disorder, depression, hopeless, panic disorder, schizophrenia, sleepless, suicidal, others All Other Systems: Reviewed and Negative Physical Exam General Appearance: Moderate Distress, Normal HEENT: Normal ENT Inspection, Pharynx Normal, TMs Normal Neck: Full Range of Motion, Non-Tender, Normal, Normal Inspection Respiratory: Chest Non-Tender, Lungs Clear, No Accessory Muscle Use, No Respiratory Distress, Normal Breath Sounds Cardiovascular: No Edema, No JVD, No Murmur, No Gallop, Normal Peripheral Pulses, Regular Rate/Rhythm Breast Exam: Deferred Gastrointestinal: No Organomegaly, Non Tender, No Pulsatile Mass, Normal Bowel Sounds, Soft Genitalia: Deferred Pelvic: Deferred Rectal: Deferred Extremities: No calf tenderness, Normal capillary refill, Normal inspection, Normal range of motion, Non-tender, No pedal edema Musculoskeletal : Apperance: Normal Neurologic: Alert, finance attorney II-XII nml as Tested, No Motor Deficits, Normal Affect, Normal Mood, No Sensory Deficits Cerebellar Function: Normal Reflexes: Normal Skin: Dry, Normal Color, Warm Peripheral Pulses: 3+ Radial (R), 3+ Radial (L) Lymphatic: No Adenopathy Was a procedure done? Was a procedure done?: No Differential Dx Considerations may include: Anemia Anxiety X-Ray, Labs, Meds, VS Vital Signs Date Time Temp Pulse Resp B/P (MAP) Pulse Ox O2 Delivery O2 Flow Rate FiO2 07/13/24 07:30 98.0 98 16 125/83 (97) 98 98.0 Lab Test 07/13/24 07:28 Range/Units White Blood Count 5.7 4.4-10.8 10^3/uL Red Blood Count 4.17 4.0-5.20 10^6/uL Hemoglobin 8.4 L 12.2-16.2 g/dL Hematocrit 27.9 L 36.0-46.0 % Mean Corpuscular Volume 66.9 L 80.0-100.0 fL Mean Corpuscular Hemoglobin 20.2 L 28.0-32.0 pg Mean Corpuscular Hemoglobin Concent 30.3 L 32.0-36.0 g/dL Red Cell Distribution Width 18.5 H 11.8-14.3 % Platelet Count 546 H 140-450 10^3/uL Mean Platelet Volume 6.7 L 6.9-10.8 fL Neutrophils (%) (Auto) 48.6 37.0-80.0 % Lymphocytes (%) (Auto) 32.5 10.0-50.0 % Monocytes (%) (Auto) 12.0 0.0-12.0 % Eosinophils (%) (Auto) 3.8 0.0-7.0 % Basophils (%) (Auto) 3.1 H 0.0-2.0 % Neutrophils # (Auto) 2.7 1.6-8.6 10 ^3/uL Lymphocytes # (Auto) 1.8 0.4-5.4 10 ^3/uL Monocytes # (Auto) 0.7 0-1.3 10 ^3/uL Eosinophils # (Auto) 0.2 0-0.8 10 ^3/uL Basophils # (Auto) 0.2 0-0.2 10 ^3/uL Nucleated Red Blood Cells 0.2 % Platelet Estimate Pending Patient alert. No sign of distress. Mild anemia. Vitals stable. No need blood transfusion. WBC within normal limits. She is comfortable. No sign any trauma. Physical examination pristine. Explained to the patient. Was told to follow up her primary care physician Was told to come back if there is any problem. Time of 1ST Reevaluation: 08:05 Reevaluation 1ST: Improved Patient Education/Counseling: Diagnosis, Treatment, Prognosis Family Education/Counseling: No Family Present Departure 1 Departure Time of Disposition: 08:05 Impression: Primary Impression: Anxiety Additional Impressions: Symptomatic anemia Methamphetamine abuse Disposition: 01 HOME / SELF CARE / HOMELESS Condition: Good Discharged With: Self Critical Care Note Critical Care Time?: No Stability Stability form required: No Heart Score Heart Score: Heart Score Response (Comments) Value History N/A 0 EKG N/A 0 Age N/A 0 Risk Factors N/A 0 Troponin N/A 0 Total 0 I personally scribed for TRACI CLAY MD ([email or web address]) on 07/13/24 at 07:41. Electronically submitted by Melvin Gee ([email or web address]). TRACI CLAY MD Jul 13, 2024 07:41
[2024-07-13 07:47] LABS: Eosinophils # (auto) 0.2 10 ^3/uL (0-0.8); Hemoglobin 8.4 g/dL (12.2-16.2); Neutrophils % (auto) 48.6 % (37.0-80.0)
[2024-07-13 07:49] LABS: Basophils # (auto) 0.2 10 ^3/uL (0-0.2); Basophils % (auto) 3.1 % (0.0-2.0); Eosinophils % (auto) 3.8 % (0.0-7.0); Hematocrit 27.9 % (36.0-46.0); Lymphocytes # (auto) 1.8 10 ^3/uL (0.4-5.4); Lymphocytes % (auto) 32.5 % (10.0-50.0); Mean Corpuscular Hemoglobin 20.2 pg (28.0-32.0); Mean Corpuscular Hgb Conc. 30.3 g/dL (32.0-36.0); Mean Corpuscular Volume 66.9 fL (80.0-100.0); Monocytes # (auto) 0.7 10 ^3/uL (0-1.3); Neutrophils # (auto) 2.7 10 ^3/uL (1.6-8.6); Nucleated Red Blood Cells % 0.2 %; Platelet Count (auto) 546 10^3/uL (140-450); Red Blood Cells 4.17 10^6/uL (4.0-5.20); Red Cell Distribution Width 18.5 % (11.8-14.3); White Blood Cell 5.7 10^3/uL (4.4-10.8)
[2024-07-13 08:07] LABS: Anisocytosis Slight; Hypochromia Moderate; Ovalocytes FEW; Platelet Estimate Increased; Stomatocytes Few
[2024-07-13 08:14] VITALS: BP 125/83; PULSE 98; RESP 16; TEMP 98; O2SAT 98
== END 2024-07-13 08:19 | disposition home or self-care (01) ==
LOC: ER 06:50
DX: F41.9 Anxiety disorder, unspecified (principal); D64.9 Anemia, unspecified; F15.10 Other stimulant abuse, uncomplicated; F17.210 Nicotine dependence, cigarettes, uncomplicated; Z79.899 Other long term (current) drug therapy; Z88.0 Allergy status to penicillin; Z88.6 Allergy status to analgesic agent
CPT/HCPCS: 36415; 85025

== ENCOUNTER 2024-07-16 06:00 | Emergency (ER) | payer MEDICAID ==
[~2024-07-16] VITALS: Ht 167.6 cm; Wt 82.0 kg
[2024-07-16] MEDS ORDERED: PERM1LIQ EX (07:29)
--- NOTE | 2024-07-16 07:29 | ED.PDOC ---
History of Present Illness(SKN HPI Comments This is a pleasant 39-year-old who presents for sensation of lice to the scalp. Onto started days ago and has not been able to get adequate relief with [id number] medications. No other complaint or concern Chief Complaint: Insect Bite Time Seen by MD: 06:48 Primary Care Provider: NONE History of Present Illness: Nurses Notes, Medications, Allergies Allergies: Coded Allergies: Aspirin (Verified Allergy, Unknown, 05/08/24) Penicillins (Verified Allergy, Unknown, 05/08/24) Home Meds Active Scripts Permethrin (LICE TREATMENT) 1 % Liq, 1 APPLIC EX ONCE for 7 Days, #1 LIQ 0 Refills Leave on hair for 10 minutes then rinse. Repeat on day 9 Prov:PENG BOYLE NP 07/16/24 Ibuprofen (Ibuprofen) 800 Mg Tab, 1 TAB PO TID, #30 TAB Prov:STAN MILLER 07/07/24 Lorazepam (ATIVAN TABLET) 0.5 Mg Tb, 1 TAB PO DAILY for 5 Days, #5 TAB Prov:TRACI CLAY MD 05/08/24 Information Source: Patient Mode of Arrival: Ambulatory Past Medical History PAST MEDICAL HISTORY: Anemia Surgical History: Denies all surgeries TEST BORER HELPER History: Denies all TEST BORER HELPER Hx Family History Family History: Reviewed,noncontributory to illness, Unknown Social History Smoker: Cigarettes Alcohol: Denies ETOH Use Drugs: Methamphetamine Lives In: Home All Other Systems: Reviewed and Negative (per hpi) Physical Exam General Appearance: No Apparent Distress, Normal HEENT: Head (no lice noted. Normocephalic atraumatic), Normal ENT Inspection, Pharynx Normal, TMs Normal Neck: Full Range of Motion, Non-Tender, Normal, Normal Inspection Respiratory: Chest Non-Tender, Lungs Clear, No Accessory Muscle Use, No Respiratory Distress, Normal Breath Sounds Cardiovascular: No Edema, No JVD, No Murmur, No Gallop, Normal Peripheral Pulses, Regular Rate/Rhythm Breast Exam: Deferred Gastrointestinal: No Organomegaly, Non Tender, No Pulsatile Mass, Normal Bowel Sounds, Soft Genitalia: Deferred Pelvic: Deferred Rectal: Deferred Extremities: No calf tenderness, Normal capillary refill, Normal inspection, Normal range of motion, Non-tender, No pedal edema Musculoskeletal : Apperance: Normal Neurologic: Alert, hand hardener II-XII nml as 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 Was a procedure done?: No Differential Diagnosis (INTG) Differential Diagnosis: Other X-Ray, Labs, Meds, VS Vital Signs Date Time Temp Pulse Resp B/P (MAP) Pulse Ox O2 Delivery O2 Flow Rate FiO2 07/16/24 06:22 97.9 82 16 155/95 (115) 100 97.9 X-Ray, Labs, Meds, VS Comment Empiric treatment Strict return precautions discussed and patient agrees to plan Time of 1ST Reevaluation: 07:26 Reevaluation 1ST: Improved Patient Education/Counseling: Diagnosis, Treatment Family Education/Counseling: Diagnosis, Treatment Departure 1 Departure Time of Disposition: 07:29 Impression: Primary Impression: Pediculosis capitis Disposition: HOME / SELF CARE / HOMELESS Condition: Stable e-Prescriptions Permethrin (LICE TREATMENT) 1 % Liq 1 APPLIC EX ONCE for 7 Days, #1 LIQ 0 Refills Leave on hair for 10 minutes then rinse. Repeat on day 9 Prov: PENG BOYLE NP 07/16/24 Critical Care Note Critical Care Time?: No Stability Stability form required: No Heart Score Heart Score: Heart Score Response (Comments) Value History N/A 0 EKG N/A 0 Age N/A 0 Risk Factors N/A 0 Troponin N/A 0 Total 0 PENG BOYLE NP Jul 16, 2024 07:29
[2024-07-16 08:01] VITALS: BP 155/95; PULSE 82; RESP 16; TEMP 97.9; O2SAT 100
== END 2024-07-16 08:02 | disposition home or self-care (01) ==
LOC: ER 06:00
DX: B85.0 Pediculosis due to Pediculus humanus capitis (principal); F17.210 Nicotine dependence, cigarettes, uncomplicated; F15.90 Other stimulant use, unspecified, uncomplicated; Z88.0 Allergy status to penicillin; Z88.6 Allergy status to analgesic agent; Z79.899 Other long term (current) drug therapy; Z79.1 Long term (current) use of non-steroidal anti-inflammatories (NSAID)

== ENCOUNTER 2024-07-16 20:16 | Emergency (ER) | payer MEDICAID ==
[~2024-07-16 20:16] MED LIST changes: +PERM1LIQ EX
== END 2024-07-16 21:00 | disposition left against medical advice (07) ==
LOC: ER 20:23
DX: R42 Dizziness and giddiness (principal); Z53.21 Procedure and treatment not carried out due to patient leaving prior to being seen by health care provider

== ENCOUNTER 2024-07-18 03:16 | Emergency (ER) | payer MEDICAID ==
[~2024-07-18] VITALS: Ht 167.6 cm; Wt 81.8 kg
--- NOTE | 2024-07-18 03:53 | ED.PDOC ---
History of Present Illness HPI Comments 39-year-old female with unknown PMHx presents with a chief complaint of mental health evaluation. Patient is expressing that she would like to inquire about safe surrender for her 15 year old son whom she has no contact with. Patient has rambling speech and is not making coherent sentences. Patient is also requesting a aids social worker to talk about her "ex being around my kids and he got another charge on him". Patient denies suicidal or homicidal ideation. She reports feeling anxious. Chief Complaint: Mental Health Time Seen by MD: 03:45 Primary Care Provider: NONE Reviewed Notes: Medications, Allergies Allergies: Coded Allergies: Aspirin (Verified Allergy, Unknown, 05/08/24) Penicillins (Verified Allergy, Unknown, 05/08/24) Home Meds Active Scripts Permethrin (LICE TREATMENT) 1 % Liq, 1 APPLIC EX ONCE for 7 Days, #1 LIQ 0 Refills Leave on hair for 10 minutes then rinse. Repeat on day 9 Prov:PENG BOYLE SUPERVISOR [employer]ING 07/16/24 Ibuprofen (Ibuprofen) 800 Mg Tab, 1 TAB PO TID, #30 TAB Prov:STAN MILLER 07/07/24 Lorazepam (ATIVAN TABLET) 0.5 Mg Tb, 1 TAB PO DAILY for 5 Days, #5 TAB Prov:TRACI CLAY MD 05/08/24 Information Source: Patient Mode of Arrival: Ambulatory Severity: Moderate Timing: Minutes Duration: Since onset Prehospital treatment: None Vital Signs Vital Signs Date Time Temp Pulse Resp B/P (MAP) Pulse Ox O2 Delivery O2 Flow Rate FiO2 07/18/24 08:00 98.6 91 18 140/83 (102) 100 98.6 Physical Exam General: Awake, alert and oriented. No acute distress. Skin: Skin in warm, dry and intact without rashes or lesions. HEENT: The head is normocephalic and atraumatic. Conjunctivae are clear without exudates or hemorrhage. Sclera is non-icteric. Neck: Normal range of motion. No JVD. Cardiac: Regular rate Respiratory: No signs of respiratory distress. No Stridor. Extremities: Upper and lower extremities are atraumatic in appearance without deformity. Neurological: The patient is awake, alert and oriented to person, place, and time with normal speech. Speech is clear. There is no facial asymmetry. Psychiatric: Rapid. Tangential speech. Normal mood Review of Systems: REVIEW OF SYSTEMS: No fever, no chills, or fatigue HEENT: No sore throat, no earache, no congestion, no neck pain. Cardiac: No chest pain. No palpitations. Lungs: No shortness of breath, no cough. GI: No nausea, no vomiting, no diarrhea, no constipation, no abdominal pain : No dysuria, frequency, or urgency. No hematuria. Musculoskeletal: No joint pain , no joint swelling, no extremity edema. Skin: No rash, no itching. Neuro: No headache, no dizziness, no weakness Psych: Positive anxiety, no suicidal ideation Past Medical History PAST MEDICAL HISTORY: Anemia Surgical History: Denies all surgeries TERRITORY OUTSIDE SALES MANAGER History: Denies all TERRITORY OUTSIDE SALES MANAGER Hx Family History Family History: Reviewed,noncontributory to illness, Unknown Social History Smoker: Cigarettes Alcohol: Denies ETOH Use Drugs: Methamphetamine Lives In: Home Was a procedure done? Was a procedure done?: No Differential Dx Considerations may include: Substance intoxication, substance abuse, anxiety, psychosis, mood disorder, depression, social problem, domestic abuse, other X-Ray, Labs, Meds, VS Vital Signs Date Time Temp Pulse Resp B/P (MAP) Pulse Ox O2 Delivery O2 Flow Rate FiO2 07/18/24 08:00 98.6 91 18 140/83 (102) 100 98.6 07/18/24 03:35 97.4 96 18 147/91 (109) 98 97.4 Lab Test 07/18/24 04:01 Range/Units White Blood Count 7.2 # 4.4-10.8 10^3/uL Red Blood Count 4.60 4.0-5.20 10^6/uL Hemoglobin 9.2 L 12.2-16.2 g/dL Hematocrit 31.3 #L 36.0-46.0 % Mean Corpuscular Volume 68.1 L 80.0-100.0 fL Mean Corpuscular Hemoglobin 19.9 L 28.0-32.0 pg Mean Corpuscular Hemoglobin Concent 29.3 L 32.0-36.0 g/dL Red Cell Distribution Width 19.3 H 11.8-14.3 % Platelet Count 616 H 140-450 10^3/uL Mean Platelet Volume 7.0 6.9-10.8 fL Neutrophils (%) (Auto) 52.5 37.0-80.0 % Lymphocytes (%) (Auto) 33.9 10.0-50.0 % Monocytes (%) (Auto) 8.4 0.0-12.0 % Eosinophils (%) (Auto) 3.5 0.0-7.0 % Basophils (%) (Auto) 1.7 0.0-2.0 % Neutrophils # (Auto) 3.8 1.6-8.6 10 ^3/uL Lymphocytes # (Auto) 2.4 0.4-5.4 10 ^3/uL Monocytes # (Auto) 0.6 0-1.3 10 ^3/uL Eosinophils # (Auto) 0.2 0-0.8 10 ^3/uL Basophils # (Auto) 0.1 0-0.2 10 ^3/uL Nucleated Red Blood Cells 0.1 % Platelet Estimate Increased Hypochromasia (manual) Moderate Anisocytosis (manual) Slight Microcytosis Moderate Ovalocytes Few Sodium Level 137 136-145 mmol/L Potassium Level 3.7 3.5-5.1 mmol/L Chloride Level 104 98-107 mmol/L Carbon Dioxide Level 24 20-31 mmol/L Anion Gap 9 5-15 Blood Urea Nitrogen 15 9-23 mg/dL Creatinine 0.77 0.550-1.02 mg/dL Glomerular Filtration Rate Calc 102 >90 mL/min BUN/Creatinine Ratio 19.5 10.0-20.0 Serum Glucose 80 74-106 mg/dL Calcium Level 9.8 8.7-10.4 mg/dL Total Bilirubin 0.4 0.2-1.0 mg/dL Aspartate Amino Transferase (AST) 44 H 13-40 U/L Alanine Aminotransferase (ALT) 71 H 7-40 U/L Alkaline Phosphatase 79 46-116 U/L Total Protein 7.7 5.7-8.2 g/dL Albumin 4.5 3.2-4.8 g/dL Plasma/Serum Blood Alcohol < 3.0 <10 mg/dL Time of 1ST Reevaluation: 04:19 Reevaluation 1ST: Unchanged Patient Education/Counseling: Need For Follow Up Family Education/Counseling: No Family Present Change of Shift?: Yes (0600: Care transferred to Dr. Carnes.) Departure 1 Departure Time of Disposition: 17:44 Impression: Primary Impression: Anxiety Disposition: 07 LEFT AWOL/ELOPED Condition: Serious Critical Care Note Critical Care Time?: No Stability Stability form required: No Heart Score Heart Score: Heart Score Response (Comments) Value History N/A 0 EKG N/A 0 Age N/A 0 Risk Factors N/A 0 Troponin N/A 0 Total 0 I personally scribed for CARLA BLACKMON MD ([email or web address]) on 07/18/24 at 03:53. Electronically submitted by Noel Goodson ([email or web address]). CARLA BLACKMON MD Jul 18, 2024 03:53 VIVI CARNES MD Jul 18, 2024 17:44
[2024-07-18 04:28] LABS: Albumin 4.5 g/dL (3.2-4.8); Alkaline Phosphatase 79 U/L (46-116); Anion Gap 9 (5-15); BUN/Creatinine Ratio 19.5 (10.0-20.0); Bilirubin, Total 0.4 mg/dL (0.2-1.0); Blood Urea Nitrogen 15 mg/dL (9-23); Calcium 9.8 mg/dL (8.7-10.4); Carbon Dioxide 24 mmol/L (20-31); Chloride 104 mmol/L (98-107); Glucose 80 mg/dL (74-106); Potassium 3.7 mmol/L (3.5-5.1); Sodium 137 mmol/L (136-145); Total Protein 7.7 g/dL (5.7-8.2)
[2024-07-18 04:35] LABS: Basophils # (auto) 0.1 10 ^3/uL (0-0.2); Basophils % (auto) 1.7 % (0.0-2.0); Eosinophils # (auto) 0.2 10 ^3/uL (0-0.8); Eosinophils % (auto) 3.5 % (0.0-7.0); Hematocrit 31.3 % (36.0-46.0); Hemoglobin 9.2 g/dL (12.2-16.2); Lymphocytes # (auto) 2.4 10 ^3/uL (0.4-5.4); Lymphocytes % (auto) 33.9 % (10.0-50.0); Mean Corpuscular Hemoglobin 19.9 pg (28.0-32.0); Mean Corpuscular Hgb Conc. 29.3 g/dL (32.0-36.0); Mean Corpuscular Volume 68.1 fL (80.0-100.0); Monocytes # (auto) 0.6 10 ^3/uL (0-1.3); Monocytes % (auto) 8.4 % (0.0-12.0); Neutrophils # (auto) 3.8 10 ^3/uL (1.6-8.6); Neutrophils % (auto) 52.5 % (37.0-80.0); Nucleated Red Blood Cells % 0.1 %; Platelet Count (auto) 616 10^3/uL (140-450); Red Cell Distribution Width 19.3 % (11.8-14.3); White Blood Cell 7.2 10^3/uL (4.4-10.8)
[2024-07-18 04:41] LABS: Alanine Aminotransferase 71 U/L (7-40); Aspartate Aminotransferase 44 U/L (13-40)
[2024-07-18 05:37] LABS: Blood Alcohol < 3.0 mg/dL (<10)
--- NOTE | 2024-07-18 06:02 | DVHINCON2 ---
Date of Service if different f: Jul 18, 2024 Time of Service: 06:01 Consult Consult Note PSYCHIATRY ED NEW CONSULT HPI: 39 yo F pt with PPH of anxiety and meth use disorder presents to ED BIB self for safety, psychiatric stabilization, and possible med initiation/optimization in setting of ongoing anxiety. Psychiatry consulted for safety evaluation and recommendations in context of current presentation Per pt, reports "my started hanging out with some bad people who are sex offenders last year and I am worried about safety of my children although they don't live with him but I also don't have any contact with them". Pt provides convoluted/complicated narrative about dynamics between , children, and her r/s with them and inquires about safe surrender for her 15 yo son. Pt report s ongoing anxiety/excessive worry/SOB/fatigue related to this but declines psychotropic intervention. Denies depressed mood, hopelessness, helplessness, isolation, negative thoughts, or anhedonia. Denies OCD/PTSD symptoms. Also denies AVH/paranoia/catatonic/perceptual disturbances. Sleep/appetite/energy/conc relatively WNL. Adamantly denies SI/HI Pt currently does have active outpt MH services established at this time (therapy only) with upcoming appt to be determined. Currently not on any psychotropic agents, prior psych med trials include hydroxyzine and alprazolam Denies ETOH, THC or IDU prior to admission although does have some hx of meth dependency, last used several days ago, never IVDU but , claims she has 7 children with no/limited contact, unemployed, lives with friend, HS grad, limited support system noted Unknown trauma hx. Denies FH of psych hospitalizations, suicide attempts, or completed suicides No acute medical/chronic pain issues, hx of seizures/TBI, or recent head inju juan, NKDA Hx of SA x 1 via drug OD in 2021, also remote hx of SIB via cutting, no prior psych hospitalizations/5150 holds. Denies history of violence, unprovoked aggression, or assaultive behaviors. Denies recent hx of impulsivity, attention seeking behaviors, anger outbursts, emotional dysregulation, mood reactivity, or engaging in risky behaviors. Denies any legal problems Currently denies SI/HI/AVH. Does not have access to firearms. Identifies self/children as PPF. No acute safety concerns noted during encounter MSE: General Appearance/Behavior: Alert and awake; appears stated age, fair grooming and hygiene; calm and cooperative, fair eye contact, no PMA/PMR Speech: coherent, increased rate, rambling at times Thought Process: bit loose, racing, and tangential Thought Content: Abnormal Thoughts and Perceptions: denies dissociative symptoms Homicidality / Violent Thoughts: adamantly denies HI Suicidality: adamantly denies SI Hallucinations: denies AVTH Delusions: denies paranoia, persecutory, or grandiose delusions Obsessions /compulsions: None Judgment and Insight: marginal/fair/questionable Mood & Affect: "okay, little anxious" with mood-congruent, appropriate Orientation: oriented to person, place, time Attention/Concentration: appears intact Cognition: grossly intact Assessment: 39 yo F pt with PPH of anxiety and meth use disorder presents to ED BIB self for safety, psychiatric stabilization, and possible med initiation/optimization in setting of ongoing anxiety Currently denies SI/HI/AVH but reports ongoing anxiety/excessive worry/SOB/fatigue related to her children's well-being but declines psychotropic intervention at this time. Interested primarily in SW consultation and also appears to be seeking housing resources. Of note, pt w/ some hx of meth dependency, last used meth several days ago which maybe contributing to pt's current presentation Presently, pt does not show any signs of immediate danger to self or others that would necessitate a higher level of care. Thus, pt does not meet criteria for 5150 or involuntary inpatient psych admission as is not DTS/DTO or GD although offered voluntary inpt psychiatric hospitalization but pt declined. Also declined further ED observation/reevaluation. No acute safety concerns noted Pt currently does have therapist out in community Currently not on any psychotropics. Declined PRN anxiolytic med when offered Primary Diagnosis: Anxiety disorder unspecified. Meth use d/o, unspecified. R/o meth induced mood/anxiety disorder Plan: Does not warrant involuntary inpatient psychiatric hospitalization or 5150 hold at this time No acute safety concerns Pt can be safely discharged back to current residence Declined psychotropic med intervention at this time Supportive tx provided, discussed safety plan with pt Emphasized sleep hygiene, exercise, healthy nutrition, ABSTAIN from IDU Encouraged mindfulness techniques (reading, walking, meditation, journaling, exercise, deep breathing) during times of stress Recommend SW consult to assist pt with any post discharge housing assistance/MH/psychiatric f/u appointments/Substance abuse referrals per pts request Pt planning on pursuing ongoing therapy with outpatient MH provider over next several weeks Instructed pt to call/text [phone] or return to ED if MH symptoms worsen or new onset SI/HI upon discharge Pt verbalized understanding and is receptive to above tx plan This case was discussed with ED nurse/provider and all parties in agreement with above tx plan Awais Lee MD Plan discussed with: Patient AWAIS LEE MD Jul 18, 2024 06:01
[2024-07-18 06:53] LABS: Anisocytosis Slight; Hypochromia Moderate
[2024-07-18 06:54] LABS: Ovalocytes FEW; Platelet Estimate Increased
[2024-07-18 08:00] VITALS: BP 140/83; PULSE 91; RESP 18; TEMP 98.6; O2SAT 100
== END 2024-07-18 15:12 | disposition left against medical advice (07) ==
LOC: ER 03:16
DX: F41.9 Anxiety disorder, unspecified (principal); J45.909 Unspecified asthma, uncomplicated; F17.210 Nicotine dependence, cigarettes, uncomplicated; F15.90 Other stimulant use, unspecified, uncomplicated; Z79.1 Long term (current) use of non-steroidal anti-inflammatories (NSAID); Z79.899 Other long term (current) drug therapy; Z88.0 Allergy status to penicillin; Z88.6 Allergy status to analgesic agent
CPT/HCPCS: 36415; 80053; 80320; 85025

== ENCOUNTER 2024-08-07 15:10 | Emergency (ER) | payer MEDICAID, OTHER ==
[~2024-08-07] VITALS: Ht 167.6 cm; Wt 68.0 kg
[2024-08-07 15:40] VITALS: O2SAT 98
[2024-08-07 15:58] LABS: Basophils # (auto) 0.1 10 ^3/uL (0-0.2); Basophils % (auto) 1.4 % (0.0-2.0); Eosinophils # (auto) 0.2 10 ^3/uL (0-0.8); Eosinophils % (auto) 3.5 % (0.0-7.0); Hematocrit 29.6 % (36.0-46.0); Hemoglobin 8.9 g/dL (12.2-16.2); Lymphocytes # (auto) 1.4 10 ^3/uL (0.4-5.4); Lymphocytes % (auto) 30.2 % (10.0-50.0); Mean Corpuscular Hemoglobin 20.4 pg (28.0-32.0); Mean Corpuscular Hgb Conc. 29.9 g/dL (32.0-36.0); Mean Corpuscular Volume 68.2 fL (80.0-100.0); Monocytes # (auto) 0.5 10 ^3/uL (0-1.3); Monocytes % (auto) 9.6 % (0.0-12.0); Neutrophils # (auto) 2.6 10 ^3/uL (1.6-8.6); Neutrophils % (auto) 55.3 % (37.0-80.0); Nucleated Red Blood Cells % 0.1 %; Platelet Count (auto) 418 10^3/uL (140-450); Red Blood Cells 4.34 10^6/uL (4.0-5.20); White Blood Cell 4.7 10^3/uL (4.4-10.8)
[2024-08-07 16:01] LABS: Red Cell Distribution Width 20.3 % (11.8-14.3)
[2024-08-07 16:09] LABS: Chloride 107 mmol/L (98-107); Sodium 139 mmol/L (136-145)
[2024-08-07 16:10] LABS: Anion Gap 11 (5-15); Carbon Dioxide 21 mmol/L (20-31)
[2024-08-07 16:11] LABS: Calcium 9.7 mg/dL (8.7-10.4)
[2024-08-07 16:15] LABS: BUN/Creatinine Ratio 19.7 (10.0-20.0); Blood Urea Nitrogen 15 mg/dL (9-23); Glucose 75 mg/dL (74-106)
--- NOTE | 2024-08-07 16:17 | ED.PDOC ---
Altered Mental Status HPI Comments 39 y/o F, BIBA, with unknown medical history presents to the ED for CC of ALOC. EMS reports, patient is coming from [facility] where staff called due to patient displaying symptoms of delirium and disorientation. EMS states, in route to the ED patient had fluctuating blood sugar readings ranging from 62-270 on glucometer. EMS comments, patient endorses drug usage through nod; unaware to which type. No other symptoms or modifying factors obtainable at this time; patient A&Ox0. Chief Complaint: ALOC Time Seen by MD: 16:00 Reviewed Notes: Nurses Notes, Surgical Resident Notes, Medications, Allergies Allergies: Coded Allergies: Aspirin (Verified Allergy, Unknown, 05/08/24) Penicillins (Verified Allergy, Unknown, 05/08/24) UNOBTAINABLE (Unverified , 08/07/24) PT A&Ox1 Home Meds Active Scripts Permethrin (LICE TREATMENT) 1 % Liq, 1 APPLIC EX ONCE for 7 Days, #1 LIQ 0 Refills Leave on hair for 10 minutes then rinse. Repeat on day 9 Prov:PENG BOYLE OLEO HASHER AND RENDERER 07/16/24 Ibuprofen (Ibuprofen) 800 Mg Tab, 1 TAB PO TID, #30 TAB Prov:STAN MILLER 07/07/24 Lorazepam (ATIVAN TABLET) 0.5 Mg Tb, 1 TAB PO DAILY for 5 Days, #5 TAB Prov:TRACI CLAY MD 05/08/24 Information Source: Emergency Med Personnel Mode of Arrival: EMS Severity: Moderate Timing: Hours Duration: Since onset Prehospital treatment: None Quality: Confusion Past Medical History PAST MEDICAL HISTORY: Unknown Surgical History: Unknown SENIOR APPLICATION PROGRAMMER History: Denies all SENIOR APPLICATION PROGRAMMER Hx, Unknown Family History Family History: Unknown Social History Smoker: Unknown Alcohol: Unknown Drugs: Unknown Lives In: Unknown Unable to Obtain due to: Altered Mental Status Physical Exam General Appearance: Mild Distress HEENT: Pharynx Normal Neck: Normal Inspection Respiratory: No Respiratory Distress Cardiovascular: Tachycardia Breast Exam: Deferred Gastrointestinal: Non Tender Genitalia: Deferred Pelvic: Deferred Rectal: Deferred Extremities: Normal range of motion Neurologic: No Motor Deficits Cerebellar Function: NOT DONE Reflexes: NOT DONE Skin: Normal Color Lymphatic: NOT DONE Was a procedure done? Was a procedure done?: No Differential Diagnosis (ALOC) Differential Diagnosis: Dehydration, Hypoglycemia, Drug Overdose, ETOH Intoxication X-Ray, Labs, Meds, VS Vital Signs Date Time Temp Pulse Resp B/P (MAP) Pulse Ox O2 Delivery O2 Flow Rate FiO2 08/07/24 16:35 98.1 76 17 154/99 (117) 98.1 08/07/24 16:35 76 17 Room Air* 0 21 08/07/24 16:30 78 08/07/24 15:40 98.6 84 16 150/90 (110) 98 98.6 Lab Test 08/07/24 15:44 Range/Units White Blood Count 4.7 4.4-10.8 10^3/uL Red Blood Count 4.34 4.0-5.20 10^6/uL Hemoglobin 8.9 L 12.2-16.2 g/dL Hematocrit 29.6 L 36.0-46.0 % Mean Corpuscular Volume 68.2 L 80.0-100.0 fL Mean Corpuscular Hemoglobin 20.4 L 28.0-32.0 pg Mean Corpuscular Hemoglobin Concent 29.9 L 32.0-36.0 g/dL Red Cell Distribution Width 20.3 H 11.8-14.3 % Platelet Count 418 140-450 10^3/uL Mean Platelet Volume 7.0 6.9-10.8 fL Neutrophils (%) (Auto) 55.3 37.0-80.0 % Lymphocytes (%) (Auto) 30.2 10.0-50.0 % Monocytes (%) (Auto) 9.6 0.0-12.0 % Eosinophils (%) (Auto) 3.5 0.0-7.0 % Basophils (%) (Auto) 1.4 0.0-2.0 % Neutrophils # (Auto) 2.6 1.6-8.6 10 ^3/uL Lymphocytes # (Auto) 1.4 0.4-5.4 10 ^3/uL Monocytes # (Auto) 0.5 0-1.3 10 ^3/uL Eosinophils # (Auto) 0.2 0-0.8 10 ^3/uL Basophils # (Auto) 0.1 0-0.2 10 ^3/uL Nucleated Red Blood Cells 0.1 % Platelet Estimate Adequate Hypochromasia (manual) Marked Anisocytosis (manual) Moderate Microcytosis Marked Sodium Level 139 136-145 mmol/L Potassium Level 4.0 3.5-5.1 mmol/L Chloride Level 107 98-107 mmol/L Carbon Dioxide Level 21 20-31 mmol/L Anion Gap 11 5-15 Blood Urea Nitrogen 15 9-23 mg/dL Creatinine 0.76 0.550-1.02 mg/dL Glomerular Filtration Rate Calc 103 >90 mL/min BUN/Creatinine Ratio 19.7 10.0-20.0 Serum Glucose 75 74-106 mg/dL Calcium Level 9.7 8.7-10.4 mg/dL Salicylates Level < 3.0 -30 mg/dL Acetaminophen Level < 2.0 L 10.0-20.0 UG/ML Plasma/Serum Blood Alcohol 5.0 <10 mg/dL Time of 1ST Reevaluation: 16:30 Reevaluation 1ST: Unchanged Patient Education/Counseling: Diagnosis, Treatment Family Education/Counseling: No Family Present Departure 1 Departure Time of Disposition: 16:21 (Patient presents with altered mental status and reported drug usage. Patient eloped from the emergency room prior to completion of her workup) Impression: Primary Impression: Toxic encephalopathy Qualified Codes: G92.9 - Unspecified toxic encephalopathy Disposition: 07 LEFT AWOL/ELOPED Condition: Serious Critical Care Note Critical Care Time?: No Stability Stability form required: No Heart Score Heart Score: Heart Score Response (Comments) Value History N/A 0 EKG N/A 0 Age N/A 0 Risk Factors N/A 0 Troponin N/A 0 Total 0 I personally scribed for VIVI CARAIS MD ([email or web address]) on 08/07/24 at 16:17. Electronically submitted by Jemma Beck [email or web address]). VIVI CARIAS MD August 07, 2024 16:17
[2024-08-07 16:29] LABS: Anisocytosis Moderate; Hypochromia Marked; Platelet Estimate Adequate
[2024-08-07 16:31] LABS: Acetaminophen < 2.0 UG/ML (10.0-20.0); Salicylate < 3.0 mg/dL (-30)
[2024-08-07 16:35] VITALS: BP 154/99; PULSE 76; RESP 17; TEMP 98.1
== END 2024-08-08 01:18 | disposition left against medical advice (07) ==
LOC: EDUNIT# 15:10 → EDBD 15:10 → ER 15:10
DX: G92.9 Unspecified toxic encephalopathy (principal); Z88.0 Allergy status to penicillin; Z88.6 Allergy status to analgesic agent; Z88.8 Allergy status to other drugs, medicaments and biological substances
CPT/HCPCS: 36415; 80048; 80320; 80329; 82947; 85025

== ENCOUNTER 2024-08-11 09:11 | Emergency (ER) | payer MEDICAID ==
[~2024-08-11] VITALS: Ht 167.6 cm; Wt 89.1 kg
[2024-08-11 09:37] VITALS: BP 144/84; PULSE 87; RESP 20; TEMP 98.1; O2SAT 99
== END 2024-08-11 09:58 | disposition left against medical advice (07) ==
LOC: ER 09:11
DX: M54.9 Dorsalgia, unspecified (principal); Z53.21 Procedure and treatment not carried out due to patient leaving prior to being seen by health care provider

== ENCOUNTER 2024-11-07 01:49 | Emergency (ER) | payer MEDICAID | END 2024-11-07 02:59 | disposition left against medical advice (07) | LOC: ER 01:49 | DX: H57.9 Unspecified disorder of eye and adnexa (principal); Z53.21 Procedure and treatment not carried out due to patient leaving prior to being seen by health care provider ==

== ENCOUNTER 2024-11-08 13:13 | Emergency (ER) | payer MEDICAID ==
[~2024-11-08] VITALS: Ht 167.6 cm; Wt 78.1 kg
--- NOTE | 2024-11-08 13:36 | ED.PDOC ---
History of Present Illness HPI Comments 39 y/o F, BIBA, presents to the ED for CC of heat exposure. EMS reports, patient is coming from Urgent Care where she came in d/t ambulating outside in the heat for an unknown amount of time and becoming lethargic. EMS relays, when patient arrived to Urgent Care staff called 911 and emergency medical services were dispatched. Patient endorses, feeling weak and fatigued at this time. No other symptoms or modifying factors present at this time. Chief Complaint: Heat Exposure Time Seen by MD: 13:30 Primary Care Provider: NONE Reviewed Notes: Nurses Notes, Computer Processing Scheduler Notes, Medications, Allergies Allergies: Coded Allergies: Aspirin (Verified Allergy, Unknown, 05/08/24) Penicillins (Verified Allergy, Unknown, 05/08/24) Home Meds Active Scripts Permethrin (LICE TREATMENT) 1 % Liq, 1 APPLIC EX ONCE for 7 Days, #1 LIQ 0 Refills Leave on hair for 10 minutes then rinse. Repeat on day 9 Prov:PENG BOYLE RADIAL DRILL PRESS SET UP OPERATOR 07/16/24 Ibuprofen (Ibuprofen) 800 Mg Tab, 1 TAB PO TID, #30 TAB Prov:STAN MILLER PA 07/07/24 Lorazepam (ATIVAN TABLET) 0.5 Mg Tb, 1 TAB PO DAILY for 5 Days, #5 TAB Prov:TRACI CLAY MD 05/08/24 Information Source: Patient, Emergency Med Personnel Mode of Arrival: EMS Severity: Moderate Timing: Minutes Duration: Since onset Prehospital treatment: None Past Medical History PAST MEDICAL HISTORY: Unknown Surgical History: Unknown HORSE RACING MANAGER History: Denies all HORSE RACING MANAGER Hx, Unknown Family History Family History: Unknown Social History Smoker: Unknown Alcohol: Unknown Drugs: Unknown Lives In: Unknown Constitutional: reports: fatigue, weakness; denies: chills, diaphoresis, fever, malaise, sweats, others EENTM: denies: blurred vision, double vision, ear bleeding, ear discharge, ear drainage, ear pain, ear ringing, eye pain, eye redness, hearing loss, mouth pain, mouth swelling, nasal discharge, nose bleeding, nose congestion, nose pain, photophobia, tearing, throat pain, throat swelling, voice changes, others Respiratory: denies: cough, hemoptysis, orthopnea, SOB at rest, shortness of breath, SOB with excertion, stridor, wheezing, others Cardiovascular: denies: chest pain, dizzy spells, diaphoresis, Dyspnea on exertion, edema, irregular heart beat, left arm pain, lightheadedness, palpitat ions, PND, syncope, others Gastrointestinal: denies: abdomen distended, abdominal pain, blood streaked bow els, constipated, diarrhea, dysphagia, difficulty swallowing, hematemesis, melena, nausea, poor appetite, poor fluid intake, rectal bleeding, rectal pain, vomiting, others Genitourinary: denies: abnormal vagina bleeding, burning, dyspareunia, dysuria, flank pain, frequency, hematuria, incontinence, pain, , vagina discharge, urgency, others Neurological: denies: dizziness, fainting, headache, left sided numbness, left sided weakness, numbness, paresthesia, pre-existing deficit, right sided numbness, right sided weakness, seizure, speech problems, tingling, tremors, weakness, others Musculoskeletal: denies: back pain, gout, joint pain, joint swelling, muscle pain, muscle stiffness, neck pain, others Integumetry: denies: bruises, change in color, change in hair/nails, dryness, laceration, lesions, lumps, rash, wounds, others Allergic/Immunocompromised: denies: Difficulty Healing, Frequent Infections, Hives, Itching, others Hematologic/Lymphatic: denies: anemia, blood clots, easy bleeding, easy bruisi ng, swollen glands, others Endocrine: denies: excessive hunger, excessive sweating, excessive thirst, exce ssive urination, flushing, intolerance to cold, intolerance to heat, unexplained weight gain, unexplained weight loss, others Psychiatric: denies: anxiety, bipolar disorder, depression, hopeless, panic disorder, schizophrenia, sleepless, suicidal, others All Other Systems: Reviewed and Negative Physical Exam General Appearance: Moderate Distress HEENT: Normal ENT Inspection, Pharynx Normal, TMs Normal Neck: Full Range of Motion, Non-Tender, Normal, Normal Inspection Respiratory: Chest Non-Tender, Lungs Clear, No Accessory Muscle Use, No Respiratory Distress, Normal Breath Sounds Cardiovascular: No Edema, No JVD, No Murmur, No Gallop, Normal Peripheral Pulses, Regular Rate/Rhythm Breast Exam: Deferred Gastrointestinal: No Organomegaly, Non Tender, No Pulsatile Mass, Normal Bowel Sounds, Soft Genitalia: Deferred Pelvic: Deferred Rectal: Deferred Extremities: No calf tenderness, Normal capillary refill, Normal inspection, Normal range of motion, Non-tender, No pedal edema Musculoskeletal : Apperance: Normal Neurologic: Alert, inspector ball points II-XII nml as Tested, No Motor Deficits, Normal Affect, Normal Mood, No Sensory Deficits Cerebellar Function: Normal Reflexes: Normal Skin: Dry, Normal Color, Warm Peripheral Pulses: 3+ Radial (R), 3+ Radial (L) Lymphatic: No Adenopathy Was a procedure done? Was a procedure done?: No Differential Dx Considerations may include: heat exhaustion X-Ray, Labs, Meds, VS Vital Signs Date Time Temp Pulse Resp B/P (MAP) Pulse Ox O2 Delivery O2 Flow Rate FiO2 11/08/24 13:18 98.6 98 18 124/79 98 98.6 11/08/24 13:17 97 Current Medications Medications (Trade) Dose Ordered Sig/[place] Route Start Time Stop Time Status Last Admin Sodium Chloride 1,000 ml @ 1,000 mls/hr Q1H ONCE IV 11/08/24 13:30 11/08/24 14:29 DC 11/08/24 14:54 Patient alert. Complaining of dehydration. Was in the sun all day. Vitals stable. Answering all questions History of psychiatric illness. Denies suicide homicidal ideation. Establish intravenous access. Was given fluids. Explained to the patient. Was told to follow up with her primary care physician. Was told to come back if there is any problem. Time of 1ST Reevaluation: 14:00 Reevaluation 1ST: Improved Patient Education/Counseling: Diagnosis, Treatment Family Education/Counseling: No Family Present SEPSIS Sepsis Screen Physician Orders Drug Screen (11/08/24 13:19) Urinalysis (11/08/24 13:19) Electrocardigram (11/08/24 13:19) Vital Signs Date Time Temp Pulse Resp B/P (MAP) Pulse Ox O2 Delivery O2 Flow Rate FiO2 11/08/24 13:18 98.6 98 18 124/79 98 98.6 11/08/24 13:17 97 Medications Medications Dose Ordered Sig/[place] Route Start Time Stop Time Status Last Admin Dose Admin Sodium Chloride 1,000 ml @ 1,000 mls/hr Q1H ONCE IV 11/08/24 13:30 11/08/24 14:29 DC 11/08/24 14:54 Departure 1 Departure Time of Disposition: 14:56 Impression: Primary Impression: Heat exhaustion Qualified Codes: T67.5XXA - Heat exhaustion, unspecified, initial encounter Disposition: HOME / SELF CARE / HOMELESS Condition: Good Discharged With: Self Critical Care Note Critical Care Time?: No Stability Stability form required: No Heart Score Heart Score: Heart Score Response (Comments) Value History N/A 0 EKG N/A 0 Age N/A 0 Risk Factors N/A 0 Troponin N/A 0 Total 0 I personally scribed for TRACI CLAY MD ([email or web address]) on 11/08/24 at 13:36. Electronically submitted by Jemma Beck [email or web address]). TRACI CLAY MD Nov 08, 2024 13:36
[2024-11-08] MEDS: SODIUM CHLORIDE 0.9% 1,000 ML IV ONE (14:54)
[2024-11-08 14:55] VITALS: BP 140/75; TEMP 98.6
[2024-11-08 14:56] VITALS: PULSE 110; RESP 24; O2SAT 100
--- NOTE | 2024-11-08 18:30 | ECG ---
[facility] Test Date: 2024-11-08 Test Time: 13:17:34 Pat Name: JAMIR GARVIN Department: [facility] ED Patient ID: [id number] Room: Gender: F Acute Care Physician: SHAMIR : 1985 Requested By: TRACI CLAY Order Number: [id number] Reading MD: Blake Damon Measurements Intervals [place] Rate: 97 P: 69 PA: 136 QRS: 76 QRSD: 99 T: 67 QT: 371 QTc: 472 Interpretive Statements Sinus rhythm Baseline wander in lead(s) II,III,aVF Electronically Signed On 11-12-2024 18:09:48 PDT by Blake Damon Please click the below link to view image of tracing.
== END 2024-11-08 16:42 | disposition home or self-care (01) ==
LOC: EDBD 13:13 → ER 13:13
DX: T67.5XXA Heat exhaustion, unspecified, initial encounter (principal); Z88.0 Allergy status to penicillin; Z88.6 Allergy status to analgesic agent; X58.XXXA Exposure to other specified factors, initial encounter; Y93.89 Activity, other specified; Y92.89 Other specified places as the place of occurrence of the external cause; Y99.8 Other external cause status
CPT/HCPCS: 93005; 96360; 99283; J7030

== ENCOUNTER 2024-11-10 06:50 | Emergency (ER) | payer MEDICAID ==
[~2024-11-10] VITALS: Ht 172.7 cm; Wt 72.7 kg
--- NOTE | 2024-11-10 07:42 | ED.PDOC ---
History of Present Illness HPI Comments 39 year old female presents to the ED via EMS with a chief complaint of tremors. Patient states she was initially experiencing tremors, called EMS. Upon ED arrival, tremors have resolved, is currently experiencing palpitations and anxiety. Patient states she is hungry, requesting food. She was seen in this ED on 11/08/24 with diagnosis of heat exhaustion. Denies any shortness of breath, dizziness,nausea, vomiting, diarrhea, abdominal pain, fevers, chills. No other symptoms or modifying factors present at this time. Chief Complaint: Tremors Time Seen by MD: 07:30 Primary Care Provider: NONE Reviewed Notes: Medications, Allergies Allergies: Coded Allergies: Aspirin (Verified Allergy, Unknown, 05/08/24) Penicillins (Verified Allergy, Unknown, 05/08/24) Home Meds Active Scripts Permethrin (LICE TREATMENT) 1 % Liq, 1 APPLIC EX ONCE for 7 Days, #1 LIQ 0 Refills Leave on hair for 10 minutes then rinse. Repeat on day 9 Prov:PENG BOYLE NP 07/16/24 Ibuprofen (Ibuprofen) 800 Mg Tab, 1 TAB PO TID, #30 TAB Prov:STAN MILLER 07/07/24 Lorazepam (ATIVAN TABLET) 0.5 Mg Tb, 1 TAB PO DAILY for 5 Days, #5 TAB Prov:TRACI CLAY MD 05/08/24 Information Source: Patient, Emergency Med Personnel Mode of Arrival: EMS Severity: Moderate Timing: Hours Duration: Since onset Prehospital treatment: None Past Medical History PAST MEDICAL HISTORY: Unknown Surgical History: Unknown OBSTETRICS GYN History: Denies all OBSTETRICS GYN Hx, Unknown Family History Family History: Unknown Social History Smoker: Unknown Alcohol: Unknown Drugs: Unknown Lives In: Homeless Constitutional: denies: chills, diaphoresis, fatigue, fever, malaise, sweats, weakness, others EENTM: denies: blurred vision, double vision, ear bleeding, ear discharge, ear drainage, ear pain, ear ringing, eye pain, eye redness, hearing loss, mouth pain, mouth swelling, nasal discharge, nose bleeding, nose congestion, nose pain, photophobia, tearing, throat pain, throat swelling, voice changes, others Respiratory: denies: cough, hemoptysis, orthopnea, SOB at rest, shortness of breath, SOB with excertion, stridor, wheezing, others Cardiovascular: reports: palpitations; denies: chest pain, dizzy spells, diaphoresis, Dyspnea on exertion, edema, irregular heart beat, left arm pain, lightheadedness, PND, syncope, others Gastrointestinal: denies: abdomen distended, abdominal pain, blood streaked bowels, constipated, diarrhea, dysphagia, difficulty swallowing, hematemesis, melena, nausea, poor appetite, poor fluid intake, rectal bleeding, rectal pain, vomiting, others Genitourinary: denies: abnormal vagina bleeding, burning, dyspareunia, dysuria, flank pain, frequency, hematuria, incontinence, pain, , vagina discharge, urgency, others Neurological: denies: dizziness, fainting, headache, left sided numbness, left sided weakness, numbness, paresthesia, pre-existing deficit, right sided numbness, right sided weakness, seizure, speech problems, tingling, tremors, we akness, others Musculoskeletal: denies: back pain, gout, joint pain, joint swelling, muscle pain, muscle stiffness, neck pain, others Integumetry: denies: bruises, change in color, change in hair/nails, dryness, laceration, lesions, lumps, rash, wounds, others Allergic/Immunocompromised: denies: Difficulty Healing, Frequent Infections, Hives, Itching, others Hematologic/Lymphatic: denies: anemia, blood clots, easy bleeding, easy bruising, swollen glands, others Endocrine: denies: excessive hunger, excessive sweating, excessive thirst, excessive urination, flushing, intolerance to cold, intolerance to heat, unexplained weight gain, unexplained weight loss, others Psychiatric: reports: anxiety; denies: bipolar disorder, depression, hopeless, panic disorder, schizophrenia, sleepless, suicidal, others All Other Systems: Reviewed and Negative Physical Exam General Appearance: Moderate Distress, Normal HEENT: Normal ENT Inspection, Pharynx Normal, TMs Normal Neck: Full Range of Motion, Non-Tender, Normal, Normal Inspection Respiratory: Chest Non-Tender, Lungs Clear, No Accessory Muscle Use, No Respiratory Distress, Normal Breath Sounds Cardiovascular: No Edema, No JVD, No Murmur, No Gallop, Normal Peripheral Pulses, Regular Rate/Rhythm Breast Exam: Deferred Gastrointestinal: No Organomegaly, Non Tender, No Pulsatile Mass, Normal Bowel Sounds, Soft Genitalia: Deferred Pelvic: Deferred Rectal: Deferred Extremities: No calf tenderness, Normal capillary refill, Normal inspection, Normal range of motion, Non-tender, No pedal edema Musculoskeletal : Apperance: Normal Neurologic: Alert, senior php developer II-XII nml as Tested, No Motor Deficits, Normal Affect, Normal Mood, No Sensory Deficits Cerebellar Function: Normal Reflexes: Normal Skin: Dry, Normal Color, Warm Peripheral Pulses: 3+ Radial (R), 3+ Radial (L) Lymphatic: No Adenopathy Was a procedure done? Was a procedure done?: No Differential Dx Considerations may include: Anxiety X-Ray, Labs, Meds, VS Vital Signs Date Time Temp Pulse Resp B/P (MAP) Pulse Ox O2 Delivery O2 Flow Rate FiO2 11/10/24 06:56 98.6 118 22 111/59 98 98.6 Patient alert. No sign of distress. Vitals stable. Answering questions. Reviewed her previous visit. She continues to come to the ER. Denies suicidal homicidal ideation. Was given Ativan. No acute process. No shortness a breath. No chest pain. No leg swelling. Explained to the patient. Was told to follow up with her primary care physician. Was told to come back if there is any problem. Time of 1ST Reevaluation: 08:00 Reevaluation 1ST: Unchanged Patient Education/Counseling: Diagnosis, Treatment, Prognosis Family Education/Counseling: No Family Present SEPSIS Sepsis Screen Date sepsis recognized/suspect: Nov 10, 2024 Time Sepsis recognized/suspect: 07 Recent Procedure: No On Antibiotic Therapy: No Respiratory Rate >20: No Heart Rate >90: No Temp<36 C (96.8 F) or >38.3 C: No SBP <90 or MAP <65 mmHG: No New Acute Mental Status Change: No Is the patient on CPAP, BIPAP,: No Vital Signs Date Time Temp Pulse Resp B/P (MAP) Pulse Ox O2 Delivery O2 Flow Rate FiO2 11/10/24 06:56 98.6 118 22 111/59 98 98.6 Departure 1 Departure Time of Disposition: 07:52 Impression: Primary Impression: Anxiety Disposition: 01 HOME / SELF CARE / HOMELESS Condition: Good Discharged With: Self Critical Care Note Critical Care Time?: No Stability Stability form required: No Heart Score Heart Score: Heart Score Response (Comments) Value History N/A 0 EKG N/A 0 Age N/A 0 Risk Factors N/A 0 Troponin N/A 0 Total 0 I personally scribed for TRACI CLAY MD ([email or web address]) on 11/10/24 at 07:42. Electronically submitted by Marilyn Finley ([email or web address]). TRACI CLAY MD Nov 10, 2024 07:42
[2024-11-10 08:45] VITALS: BP 100/64; PULSE 120; RESP 20; TEMP 98.8; O2SAT 95
[2024-11-10] MEDS: LORazepam 0.5 MG TAB PO ONE (08:45)
== END 2024-11-10 08:57 | disposition home or self-care (01) ==
LOC: ER 06:50 → EDBD 06:50 → ER 08:56
DX: F41.9 Anxiety disorder, unspecified (principal); Z88.6 Allergy status to analgesic agent; Z88.0 Allergy status to penicillin; Z79.899 Other long term (current) drug therapy; Z79.1 Long term (current) use of non-steroidal anti-inflammatories (NSAID); Z59.00 Homelessness unspecified

== ENCOUNTER 2024-11-10 19:30 | Emergency (ER) | payer MEDICAID, OTHER ==
[~2024-11-10] VITALS: Ht 167.6 cm; Wt 72.7 kg
[2024-11-10 19:32] VITALS: BP 106/61; PULSE 108; RESP 22; TEMP 98.6; O2SAT 98
== END 2024-11-10 20:44 | disposition left against medical advice (07) ==
LOC: ER 19:30 → MERGE 19:30 → ER 20:44
DX: F41.9 Anxiety disorder, unspecified (principal); Z53.21 Procedure and treatment not carried out due to patient leaving prior to being seen by health care provider

== ENCOUNTER 2025-02-22 02:05 | Emergency (ER) | payer MEDICAID ==
[~2025-02-22] VITALS: Ht 170.2 cm; Wt 79.6 kg
[2025-02-22 02:07] VITALS: BP 144/94; PULSE 97; RESP 18; TEMP 98.3; O2SAT 100
[2025-02-22] MEDS ORDERED: TETANUS-DIPTH-ACEL PERTUSSIS 0.5ML SYR Tdap IM ONE (03:00)
--- NOTE | 2025-02-22 03:13 | ED.PDOC ---
SWITCH ADJUSTER HPI Comments PT CAME TO THE ER WITH CC OF NEED TEST. PT IS A&OX4 RR EVEN AND R EGULAR. DENIES VAGINAL BLEEDING, SPOTTING, ABDOMINAL PAIN OR CRAMPING NOTES NO CHEST PAIN, SHORTNESS OF BREATH, DIZZINESS, NAUSEA, VOMITING, FEVER OR CHILLS. Chief Complaint: Time Seen by MD: 02:35 Reviewed Notes: Nurses Notes, Medications, Allergies Allergies: Coded Allergies: Aspirin (Verified Allergy, Unknown, 05/08/24) No Known Drug Allergy (Verified Allergy, Unknown, 11/20/24) Penicillins (Verified Allergy, Unknown, 05/08/24) Home Meds Active Scripts Permethrin (LICE TREATMENT) 1 % Liq, 1 APPLIC EX ONCE for 7 Days, #1 LIQ 0 Refills Leave on hair for 10 minutes then rinse. Repeat on day 9 Prov:PENG BOYLE NP 07/16/24 Ibuprofen (Ibuprofen) 800 Mg Tab, 1 TAB PO TID, #30 TAB Prov:STAN MILLER 07/07/24 Lorazepam (ATIVAN TABLET) 0.5 Mg Tb, 1 TAB PO DAILY for 5 Days, #5 TAB Prov:TRACI CLAY MD 05/08/24 Information Source: Patient Past Medical History PAST MEDICAL HISTORY: Unknown Surgical History: Unknown HEAVY DUTY TRUCK MECHANIC History: Denies all HEAVY DUTY TRUCK MECHANIC Hx, Unknown Family History Family History: Unknown Social History Smoker: Unknown Alcohol: Unknown Drugs: Unknown Lives In: Homeless All Other Systems: Reviewed and Negative (SEE HPI) Physical Exam General Appearance: No Apparent Distress, Normal HEENT: Pharynx Normal Neck: Full Range of Motion, Non-Tender Respiratory: Lungs Clear, No Respiratory Distress, Normal Breath Sounds Cardiovascular: No Edema, No JVD, No Murmur, No Gallop, Normal Peripheral Pulses, Regular Rate/Rhythm Breast Exam: Deferred Gastrointestinal: No Organomegaly, Non Tender, No Pulsatile Mass, Normal Bowel Sounds, Soft Genitalia: Deferred Pelvic: Deferred Rectal: Deferred Extremities: Normal capillary refill, Normal range of motion, Non-tender, No pedal edema Musculoskeletal : Apperance: Normal Neurologic: Alert, No Motor Deficits, Normal Affect, Normal Mood, No Sensory Deficits Cerebellar Function: Normal Reflexes: NOT DONE Skin: Dry, Normal Color, Warm Lymphatic: No Adenopathy Was a procedure done? Was a procedure done?: No Differential Diagnosis (HEAVY DUTY TRUCK MECHANIC) Vaginal Bleeding: - Complete, - Incomplete, - Inevitable, - Missed, - Threatened, Abruptio Placentae, Ectopic , Menorrhagia, PID, UTI X-Ray, Labs, Meds, VS Vital Signs Date Time Temp Pulse Resp B/P (MAP) Pulse Ox O2 Delivery O2 Flow Rate FiO2 02/22/25 02:07 98.3 97 18 144/94 100 98.3 X-Ray, Labs, Meds, VS Comment PATIENT REFUSED TEST AND UA. Time of 1ST Reevaluation: 02:35 Reevaluation 1ST: Unchanged Time of 2ND Reevaluation: 03:13 Reevaluation 2ND: Improved Patient Education/Counseling: Diagnosis, Treatment, Need For Follow Up Family Education/Counseling: Diagnosis, Treatment Departure 1 Departure Time of Disposition: 03:13 Impression: Primary Impression: Adult wellness visit Disposition: 01 HOME / SELF CARE / HOMELESS Condition: Stable Discharged With: Significant Other Critical Care Note Critical Care Time?: No Stability Stability form required: GRECIA Pineda Feb 22, 2025 03:13
== END 2025-02-22 05:24 | disposition home or self-care (01) ==
LOC: ER 02:05
DX: Z00.00 Encounter for general adult medical examination without abnormal findings (principal); Z79.899 Other long term (current) drug therapy; Z88.6 Allergy status to analgesic agent; Z88.0 Allergy status to penicillin; Z79.1 Long term (current) use of non-steroidal anti-inflammatories (NSAID); Z59.00 Homelessness unspecified

== ENCOUNTER 2025-03-01 06:26 | Emergency (ER) | payer MEDICAID ==
[~2025-03-01] VITALS: Ht 167.6 cm; Wt 77.5 kg
--- NOTE | 2025-03-01 07:00 | ED.PDOC ---
History of Present Illness HPI Comments 40-year-old female came to the ER stating that she has been dizzy here for the past several weeks. Came here to get prescription for shampoo. Denies suicidal or homicidal ideation. Denies any other symptoms. Chief Complaint: Rash Time Seen by MD: 06:39 Primary Care Provider: NONE Reviewed Notes: Nurses Notes, Medications, Allergies Allergies: Coded Allergies: Aspirin (Verified Allergy, Unknown, 05/08/24) No Known Drug Allergy (Verified Allergy, Unknown, 11/20/24) Penicillins (Verified Allergy, Unknown, 05/08/24) Home Meds Active Scripts Permethrin (LICE TREATMENT) 1 % Liq, 1 APPLIC EX ONCE for 7 Days, #1 LIQ 0 Refills Leave on hair for 10 minutes then rinse. Repeat on day 9 Prov:PENG BOYLE NP 07/16/24 Ibuprofen (Ibuprofen) 800 Mg Tab, 1 TAB PO TID, #30 TAB Prov:STAN MILLER 07/07/24 Lorazepam (ATIVAN TABLET) 0.5 Mg Tb, 1 TAB PO DAILY for 5 Days, #5 TAB Prov:TRACI CLAY MD 05/08/24 Information Source: Patient Mode of Arrival: Ambulatory Severity: Moderate Timing: Days Duration: Since onset Past Medical History PAST MEDICAL HISTORY: Unknown Surgical History: Unknown CMO History: Denies all CMO Hx, Unknown Family History Family History: Unknown Social History Smoker: Unknown Alcohol: Unknown Drugs: Unknown Lives In: Homeless Constitutional: denies: chills, diaphoresis, fatigue, fever, malaise, sweats, weakness, others EENTM: denies: blurred vision, double vision, ear bleeding, ear discharge, ear drainage, ear pain, ear ringing, eye pain, eye redness, hearing loss, mouth pain, mouth swelling, nasal discharge, nose bleeding, nose congestion, nose pain, photophobia, tearing, throat pain, throat swelling, voice changes, others Respiratory: denies: cough, hemoptysis, orthopnea, SOB at rest, shortness of breath, SOB with excertion, stridor, wheezing, others Cardiovascular: denies: chest pain, dizzy spells, diaphoresis, Dyspnea on exertion, edema, irregular heart beat, left arm pain, lightheadedness, palpitations, PND, syncope, others Gastrointestinal: denies: abdomen distended, abdominal pain, blood streaked bowels, constipated, diarrhea, dysphagia, difficulty swallowing, hematemesis, melena, nausea, poor appetite, poor fluid intake, rectal bleeding, rectal pain, vomiting, others Genitourinary: denies: abnormal vagina bleeding, burning, dyspareunia, dysuria, flank pain, frequency, hematuria, incontinence, pain, , vagina discharge, urgency, others Neurological: denies: dizziness, fainting, headache, left sided numbness, left sided weakness, numbness, paresthesia, pre-existing deficit, right sided numbness, right sided weakness, seizure, speech problems, tingling, tremors, weakness, others Musculoskeletal: denies: back pain, gout, joint pain, joint swelling, muscle pain, muscle stiffness, neck pain, others Integumetry: denies: bruises, change in color, change in hair/nails, dryness, laceration, lesions, lumps, rash, wounds, others Allergic/Immunocompromised: denies: Difficulty Healing, Frequent Infections, Hives, Itching, others Hematologic/Lymphatic: denies: anemia, blood clots, easy bleeding, easy bruising, swollen glands, others Endocrine: denies: excessive hunger, excessive sweating, excessive thirst, excessive urination, flushing, intolerance to cold, intolerance to heat, unexplained weight gain, unexplained weight loss, others Psychiatric: denies: anxiety, bipolar disorder, depression, hopeless, panic disorder, schizophrenia, sleepless, suicidal, others Physical Exam General Appearance: Moderate Distress HEENT: Normal ENT Inspection, Pharynx Normal, TMs Normal Neck: Full Range of Motion, Non-Tender, Normal, Normal Inspection Respiratory: Chest Non-Tender, Lungs Clear, No Accessory Muscle Use, No Respiratory Distress, Normal Breath Sounds Cardiovascular: No Edema, No JVD, No Murmur, No Gallop, Normal Peripheral Pulses, Regular Rate/Rhythm Breast Exam: Deferred Gastrointestinal: No Organomegaly, Non Tender, No Pulsatile Mass, Normal Bowel Sounds, Soft Genitalia: Deferred Pelvic: Deferred Rectal: Deferred Extremities: No calf tenderness, Normal capillary refill, Normal inspection, Normal range of motion, Non-tender, No pedal edema Musculoskeletal : Apperance: Normal Neurologic: Alert, mottle lay up operator II-XII nml as Tested, No Motor Deficits, Normal Affect, Normal Mood, No Sensory Deficits Cerebellar Function: Normal Reflexes: Normal Skin: Dry, Normal Color, Warm, Other (Alopecia) Peripheral Pulses: 3+ Radial (R), 3+ Radial (L) Lymphatic: No Adenopathy Was a procedure done? Was a procedure done?: No Differential Dx Considerations may include: Alopecia X-Ray, Labs, Meds, VS Vital Signs Date Time Temp Pulse Resp B/P (MAP) Pulse Ox O2 Delivery O2 Flow Rate FiO2 03/01/25 06:27 98.0 100 18 147/92 99 98.0 Patient alert. Vitals stable. Has come in because of hair loss. Answering questions. Ambulating. No injuries. Denies suicidal or homicidal ideation. Explained to the patient. Was told to follow up with her primary care physician. Was told to come back if there is any problem. Time of 1ST Reevaluation: 06:59 Reevaluation 1ST: Unchanged Patient Education/Counseling: Diagnosis, Treatment, Prognosis, Need For Follow Up Family Education/Counseling: No Family Present SEPSIS Sepsis Screen Date sepsis recognized/suspect: Mar 01, 2025 Time Sepsis recognized/suspect: 628 Recent Procedure: No On Antibiotic Therapy: No Respiratory Rate >20: No Heart Rate >90: Yes Temp<36 C (96.8 F) or >38.3 C: No SBP <90 or MAP <65 mmHG: No New Acute Mental Status Change: No Is the patient on CPAP, BIPAP,: No Vital Signs Date Time Temp Pulse Resp B/P (MAP) Pulse Ox O2 Delivery O2 Flow Rate FiO2 03/01/25 06:27 98.0 100 18 147/92 99 98.0 Departure 1 Departure Time of Disposition: 07:00 Impression: Primary Impression: Alopecia Disposition: 01 HOME / SELF CARE / HOMELESS Condition: Good e-Prescriptions Lorazepam (ATIVAN TABLET) 0.5 Mg Tb 1 TAB PO DAILY for 5 Days, #5 TAB Prov: TRACI CLAY MD 03/01/25 Discharged With: Self Critical Care Note Critical Care Time?: No Stability Stability form required: No Heart Score Heart Score: Heart Score Response (Comments) Value History N/A 0 EKG N/A 0 Age N/A 0 Risk Factors N/A 0 Troponin N/A 0 Total 0 TRACI CLAY MD Mar 01, 2025 07:00
[2025-03-01 08:15] VITALS: BP 150/70; PULSE 100; RESP 19; TEMP 98.4; O2SAT 99
== END 2025-03-01 08:46 | disposition home or self-care (01) ==
LOC: ER 06:26
DX: L65.9 Nonscarring hair loss, unspecified (principal); Z79.899 Other long term (current) drug therapy; Z59.00 Homelessness unspecified; Z79.1 Long term (current) use of non-steroidal anti-inflammatories (NSAID); Z88.6 Allergy status to analgesic agent; Z88.0 Allergy status to penicillin

== ENCOUNTER 2025-04-01 21:36 | Emergency (ER) | payer MEDICAID ==
[~2025-04-01] VITALS: Ht 167.6 cm; Wt 76.5 kg
--- NOTE | 2025-04-01 21:58 | ED.PDOC ---
History of Present Illness HPI Comments 40 year old female presents to the emergency department for chief complaint of head irritation onset today. Pt reports moderate discomfort with associated itchiness and pain. Denies chills, fever, N/V/D, SOB, CP. Denies any other symptoms at this time. Chief Complaint: Wound Check Time Seen by MD: 21:56 Primary Care Provider: NONE Reviewed Notes: Nurses Notes, Medications, Allergies Allergies: Coded Allergies: Aspirin (Verified Allergy, Unknown, 05/08/24) No Known Drug Allergy (Verified Allergy, Unknown, 11/20/24) Penicillins (Verified Allergy, Unknown, 05/08/24) Home Meds Active Scripts Ketoconazole (Ketoconazole) 2 % Sha, 2 % EX DAILY PRN, #200 SHA Prov:ADALBERTO MONTES DE OCA 04/01/25 Lorazepam (ATIVAN TABLET) 0.5 Mg Tb, 1 TAB PO DAILY for 5 Days, #5 TAB Prov:TRACI CLAY MD 03/01/25 Permethrin (LICE TREATMENT) 1 % Liq, 1 APPLIC EX ONCE for 7 Days, #1 LIQ 0 Refi lls Leave on hair for 10 minutes then rinse. Repeat on day 9 Prov:PENG BOYLE CHIEF CLERK 07/16/24 Ibuprofen (Ibuprofen) 800 Mg Tab, 1 TAB PO TID, #30 TAB Prov:STAN MILLER 07/07/24 Lorazepam (ATIVAN TABLET) 0.5 Mg Tb, 1 TAB PO DAILY for 5 Days, #5 TAB Prov:TRACI CLAY MD 05/08/24 Information Source: Patient Mode of Arrival: Ambulatory Severity: Moderate Timing: Hours Duration: Since onset Prehospital treatment: None Past Medical History PAST MEDICAL HISTORY: Unknown Surgical History: Unknown MOTOR INSTALLER History: Denies all MOTOR INSTALLER Hx, Unknown Family History Family History: Unknown Social History Smoker: Unknown Alcohol: Unknown Drugs: Unknown Lives In: Homeless Constitutional: denies: chills, diaphoresis, fatigue, fever, malaise, sweats, weakness, others EENTM: denies: blurred vision, double vision, ear bleeding, ear discharge, ear drainage, ear pain, ear ringing, eye pain, eye redness, hearing loss, mouth pain, mouth swelling, nasal discharge, nose bleeding, nose congestion, nose pain, photophobia, tearing, throat pain, throat swelling, voice changes, others Respiratory: denies: cough, hemoptysis, orthopnea, SOB at rest, shortness of breath, SOB with excertion, stridor, wheezing, others Cardiovascular: denies: chest pain, dizzy spells, diaphoresis, Dyspnea on exertion, edema, irregular heart beat, left arm pain, lightheadedness, palpitations, PND, syncope, others Gastrointestinal: denies: abdomen distended, abdominal pain, blood streaked bowels, constipated, diarrhea, dysphagia, difficulty swallowing, hematemesis, melena, nausea, poor appetite, poor fluid intake, rectal bleeding, rectal pain, vomiting, others Genitourinary: denies: abnormal vagina bleeding, burning, dyspareunia, dysuria, flank pain, frequency, hematuria, incontinence, pain, , vagina d ischarge, urgency, others Neurological: denies: dizziness, fainting, headache, left sided numbness, left sided weakness, numbness, paresthesia, pre-existing deficit, right sided numbness, right sided weakness, seizure, speech problems, tingling, tremors, weakness, others Musculoskeletal: denies: back pain, gout, joint pain, joint swelling, muscle pain, muscle stiffness, neck pain, others Integumetry: denies: bruises, change in color, change in hair/nails, dryness, laceration, lesions, lumps, rash, wounds, others Allergic/Immunocompromised: denies: Difficulty Healing, Frequent Infections, Hives, Itching, others Hematologic/Lymphatic: denies: anemia, blood clots, easy bleeding, easy bruising, swollen glands, others Endocrine: denies: excessive hunger, excessive sweating, excessive thirst, excessive urination, flushing, intolerance to cold, intolerance to heat, unexplained weight gain, unexplained weight loss, others Psychiatric: denies: anxiety, bipolar disorder, depression, hopeless, panic disorder, schizophrenia, sleepless, suicidal, others All Other Systems: Reviewed and Negative Physical Exam General Appearance: No Apparent Distress, Normal HEENT: Normal ENT Inspection, Pharynx Normal, TMs Normal Neck: Full Range of Motion, Non-Tender, Normal, Normal Inspection Respiratory: Chest Non-Tender, Lungs Clear, No Accessory Muscle Use, No Respiratory Distress, Normal Breath Sounds Cardiovascular: No Edema, No JVD, No Murmur, No Gallop, Normal Peripheral Pulses, Regular Rate/Rhythm Breast Exam: Deferred Gastrointestinal: No Organomegaly, Non Tender, No Pulsatile Mass, Normal Bowel Sounds, Soft Genitalia: Deferred Pelvic: Deferred Rectal: Deferred Extremities: No calf tenderness, Normal capillary refill, Normal inspection, Normal range of motion, Non-tender, No pedal edema Musculoskeletal : Apperance: Normal Neurologic: Alert, grave cleaner II-XII nml as 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 Was a procedure done?: No Differential Dx Considerations may include: Scabies, lice, fungal infection X-Ray, Labs, Meds, VS Vital Signs Date Time Temp Pulse Resp B/P (MAP) Pulse Ox O2 Delivery O2 Flow Rate FiO2 04/01/25 21:38 98.1 113 20 147/97 98 98.1 X-Ray, Labs, Meds, VS Comment Imaging: X-rays and CT scans were reviewed and interpreted by this provider, imaging shows no fractures and no pathological disease. Pending radiology review. Laboratory: Labs reviewed and interpreted by this provider. No significant abnormalities noted. Patient has prior medical visits reviewed. Med reconciliation performed Vital signs reviewed Time of 1ST Reevaluation: 21:24 Reevaluation 1ST: Unchanged Patient Education/Counseling: Diagnosis, Treatment, Need For Follow Up (Follow up with the PCP in next available appointment.) Family Education/Counseling: No Family Present SEPSIS Sepsis Screen Date sepsis recognized/suspect: Apr 01, 2025 Time Sepsis recognized/suspect: 2137 Recent Procedure: No On Antibiotic Therapy: No Respiratory Rate >20: No Heart Rate >90: Yes Temp<36 C (96.8 F) or >38.3 C: No SBP <90 or MAP <65 mmHG: No New Acute Mental Status Change: No Is the patient on CPAP, BIPAP,: No Vital Signs Date Time Temp Pulse Resp B/P (MAP) Pulse Ox O2 Delivery O2 Flow Rate FiO2 04/01/25 21:38 98.1 113 20 147/97 98 98.1 Departure 1 Departure Time of Disposition: 22:02 Impression: Primary Impression: Alopecia Additional Impression: Fungal scalp infection Disposition: 01 HOME / SELF CARE / HOMELESS Condition: Fair e-Prescriptions Ketoconazole (Ketoconazole) 2 % Sha 2 % EX DAILY PRN, #200 SHA Prov: ADALBERTO MONTES DE OCA 04/01/25 Discharged With: Self Critical Care Note Critical Care Time?: No Stability Stability form required: No Heart Score Heart Score: Heart Score Response (Comments) Value History N/A 0 EKG N/A 0 Age N/A 0 Risk Factors N/A 0 Troponin N/A 0 Total 0 I personally scribed for ADALBERTO MONTES DE OCA ([email or web address]) on 04/01/25 at 21:58. Electronically submitted by Jyotsna Bowen ([email or web address]). ADALBERTO MONTES DE OCA Apr 01, 2025 21:58
[2025-04-01] MEDS ORDERED: KETO2SHA5 EX (21:59)
[2025-04-01 22:45] VITALS: BP 147/97; TEMP 98.1
[2025-04-01 22:50] VITALS: PULSE 113; RESP 20; O2SAT 98
== END 2025-04-01 23:07 | disposition home or self-care (01) ==
LOC: ER 21:36
DX: L65.9 Nonscarring hair loss, unspecified (principal); B35.0 Tinea barbae and tinea capitis; Z88.6 Allergy status to analgesic agent; Z88.0 Allergy status to penicillin; Z79.899 Other long term (current) drug therapy; Z59.00 Homelessness unspecified

== ENCOUNTER → 2025-04-02 00:55 | Emergency (ER) | payer MEDICAID ==
[~2025-04-02 00:55] MED LIST changes: +KETO2SHA5 EX
== END | disposition left against medical advice (07) ==
LOC: ER 00:55
DX: R51.9 Headache, unspecified (principal); Z53.21 Procedure and treatment not carried out due to patient leaving prior to being seen by health care provider